=== PATIENT | male | born 1980 | race Caucasian/White ===

== ENCOUNTER → 2021-12-02 | Outpatient (CLI) | payer OTHER, SELFPAY ==
[2021-12-02 11:59] LABS: Erythrocyte Sedimentation Rate 1 mm/hr (0-20)
[2021-12-02 12:03] LABS: Absolute Lymphocyte Count 2.37 X10^3/uL (0.83-4.51); Absolute Neutrophil Count 4.5 X10^3/uL (2.0-7.7); Basophil# 0.07 X10^3/uL; Basophil% 0.8 % (0-1); Eosinophil# 0.65 X10^3/uL; Eosinophils% 7.8 % (0-5); Hematocrit 36.6 % (40-54); Lymphocyte # 2.37 X10^3/ul (0.83-4.51); Lymphocyte % 28.6 % (19-41); Mean Corp Hgb Conc 35.5 g/dL (32-36); Mean Corpuscular Hgb 30.3 pg (27.0-32.0); Mean Corpuscular Volume 85.3 fL (80-94); Mean Platelet Vol. 10.1 fl (6.2-12.0); Monocyte% 7.2 % (0-10); NRBC Flagged by Analyzer 0 % (0-5); Neutrophil % 54.3 % (47-70); Platelet Count 271 K/mm3 (150-450); RBC Distribution Width CV 12.4 % (11.6-14.6); RBC Distribution Width SD 38.2 fl (35.1-43.9); Red Blood Count 4.29 M/mm3 (4.6-6.2); White Blood Count 8.3 K/mm3 (4.4-11.0)
[2021-12-02 12:11] LABS: ALB/GLOB Ratio 1.1 RATIO (0.9-2.4); AST(SGOT) 19 U/L (15-37); Alanine Aminotransfer ALT/SGPT 30 U/L (16-61); Albumin, Serum 3.7 g/dL (3.2-5.0); Alkaline Phosphatase 51 U/L (45-117); Amylase 45 U/L (25-115); Anion Gap 8 (5-15); BUN 13 mg/dL (7-18); Calcium,Total 8.9 mg/dL (8.5-10.1); Chloride 107 mmol/L (98-107); Creatinine, Serum 0.93 mg/dL (0.70-1.30); EST Glomerular Filtration Rate 95 mL/min (>60); Est Glom Filt Rate - Afr Amer 115 mL/min (>60); Globulin 3.5 g/dL (2.2-4.2); Glucose 98 mg/dL (74-106); Lipase 110 U/L (73-393); Potassium 3.9 mmol/L (3.5-5.1); Protein, Total 7.2 g/dL (6.4-8.2); Sodium Level 142 mmol/L (136-145)
--- NOTE | 2021-12-02 13:16 | CT_ITS ---
STUDY: CT ABDOMEN AND PELVIS WITH CONTRAST REASON FOR EXAM: Male, 41 years old. ABD PAIN, DIFFUSE -- GI BLEED RADIATION DOSAGE (If Supplied By Facility): CTDIvol = ( 15.87 ) mGy, DLP = ( 1209.88 ) mGycm TECHNIQUE: Transaxial images were obtained from the dome of the diaphragm to the symphysis pubis with oral contrast. Oral and amp; IV Gastrografin and amp; 100mL Isovue-300 was administered. Sagittal and coronal images were reconstructed. Individualized dose optimization techniques were used for this CT. COMPARISON: None. FINDINGS: Minimal degree of dependent bibasilar atelectasis. The visualized portions of the heart are within normal limits. Normal liver. Normal gallbladder and extrahepatic biliary system. Normal spleen. Normal pancreas. Normal bilateral adrenal glands. Normal right kidney. Normal left kidney. Normal visualized stomach. Normal small intestine. Scattered sigmoid diverticula. The patient is status post appendectomy. Normal abdominal aorta. Normal inferior vena cava. Normal retroperitoneum. Distended urinary bladder. Small benign-appearing bilateral inguinal lymph nodes. Normal osseous structures. CT/Abdomen/Pelvis WITH Contrast IMPRESSION: Scattered sigmoid diverticula. Electronically Signed: Payam Pugh MD at 14:30 EDT ,
== END | disposition home or self-care (01) ==
PROVIDERS: PCP Internal Medicine; Referring Provider Internal Medicine; Visit Provider Internal Medicine
DX: R10.84 Generalized abdominal pain (principal)
CPT/HCPCS: 36415; 74177; 80053; 82150; 83690; 85025; 85652; Q9967

== ENCOUNTER 2022-07-24 12:00 | Observation (INO) | payer OTHER, SELFPAY ==
[2022-07-24 12:01] VITALS: BP 165/91; PULSE 73; RESP 18; TEMP 36.2; O2SAT 100; BMI 31.8
[2022-07-24 13:39] LABS: Absolute Lymphocyte Count 2.09 X10^3/uL (0.83-4.51); Absolute Neutrophil Count 3.5 X10^3/uL (2.0-7.7); Basophil# 0.04 X10^3/uL; Basophil% 0.6 % (0-1); Eosinophil# 0.29 X10^3/uL; Eosinophils% 4.5 % (0-5); Hematocrit 32.5 % (40-54); Hemoglobin 9.8 g/dL (13.0-16.5); Lymphocyte # 2.09 X10^3/ul (0.83-4.51); Lymphocyte % 32.3 % (19-41); Mean Corp Hgb Conc 30.2 g/dL (32-36); Mean Corpuscular Hgb 23.3 pg (27.0-32.0); Mean Corpuscular Volume 77.2 fL (80-94); Mean Platelet Vol. 9.6 fl (6.2-12.0); Monocyte# 0.58 X10^3/uL; NRBC Flagged by Analyzer 0 % (0-5); Neutrophil # 3.46 X10^3/uL (2.7-7.7); Neutrophil % 53.4 % (47-70); Platelet Count 396 K/mm3 (150-450); RBC Distribution Width CV 17.1 % (11.6-14.6); RBC Distribution Width SD 47.5 fl (35.1-43.9); Red Blood Count 4.21 M/mm3 (4.6-6.2); White Blood Count 6.5 K/mm3 (4.4-11.0)
--- NOTE | 2022-07-24 15:10 | CT_ITS ---
STUDY: CT ABDOMEN AND PELVIS WITH CONTRAST REASON FOR EXAM: Male, 42 years old. Chronic abdominal pain. Blood in the stools. RADIATION DOSAGE (If Supplied By Facility): CTDIvol = ( 14.24 ) mGy, DLP = ( 1146.07 ) mGycm TECHNIQUE: Transaxial images were obtained from the dome of the diaphragm to the symphysis pubis without oral contrast. IV 100mL Isovue-300 was administered. Sagittal and coronal images were reconstructed. Individualized dose optimization techniques were used for this CT. COMPARISON: Comparison is made with prior study dated December 02, 2021. FINDINGS: The visualized lung bases are unremarkable. The visualized portions of the heart are within normal limits. Normal liver. Normal gallbladder and extrahepatic biliary system. Normal spleen. Normal pancreas. Normal bilateral adrenal glands. Focal cortical defect in the midportion of the lateral aspect of the right kidney suggestive of a prior inflammatory insult. Normal left kidney. Normal visualized stomach. Normal small intestine. There are scattered colonic diverticula consistent with diverticulosis. There are surgical clips in the region of the appendix consistent with a prior appendectomy. There is scattered atherosclerotic calcification of the abdominal aorta, without a demonstrated aneurysm. Normal inferior vena cava. Normal retroperitoneum. Normal urinary bladder. Normal abdominal wall. Normal osseous structures. CT/Abdomen/Pelvis W IV Cont ONLY IMPRESSION: 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 This was not seen on prior study. Electronically Signed: Payam Pugh MD at 15:56 EST ,
[2022-07-24 15:16] LABS: Bacteria 0 SEEN /hpf (None Seen); Mucous, Urine 0 SEEN /hpf (<or=2+); Red Blood Cells-Urine 0 SEEN /hpf (0-5); Squamous Epithelial Cells - UA 0 SEEN /hpf (0-5); White Blood Cells 0 SEEN /hpf (0-5)
[2022-07-24] MEDS: 0.9% Normal Saline 1,000 ML 1000 ML IV (15:26)
[2022-07-24 15:34] LABS: Color, Urine Straw (Yellow); Glucose, Dipstick Normal (Normal); Ketone-Dipstick Negative (Negative); Leukocyte Esterase-Dipstick Negative /ul (Negative); Nitrite-Dipstick Negative (Negative); Occult Blood-Urine Negative /ul (Negative); Protein-Dipstick Negative (Negative); Urine Bilirubin Dipstick Negative (Negative); Urine Clarity Clear (Clear); Urine Urobilinogen Normal (Normal); Urine pH 6.5 (5.0 - 8.0)
--- NOTE | 2022-07-24 16:06 | EX.ED.DYSGE1 ---
HPI <EDWARD Pace - Last Filed: 07/24/22 17:35> History of Present Illness Chief Complaint: GI Bleed Narrative Narrative: Patient is a 42-year-old male with no significant medical history presents to the emergency department with ongoing abdominal pain, rectal bleeding. Patient states that he has been dealing with this for multiple years. This comes in waves, he will have multiple weeks where he has significant rectal bleeding where he gets dizzy, lightheaded. Patient in the past has had CAT scans, colonoscopies and has not had any diagnosis. Patient states that over the last 3 weeks, has been having worsening abdominal pain, blood in stool. Patient's last blood in stool was this morning. Patient has a history of anemia with a hemoglobin of 8.6 a week ago, he went to the industrial maintenance mechanic and saw a nurse practitioner who referred him to the emergency department. PFSH <EDWARD Pace - Last Filed: 07/24/22 17:35> PFSH Medical History Abdominal pain Anemia Blood in stool Diverticulitis Dizziness and giddiness GIB (gastrointestinal bleeding) Impingement syndrome of left shoulder LLQ pain Nausea Home Medications NK 07/24/22 [History Last Taken Unknown] Allergy/AdvReac Type Severity Reaction Status Date / Time No Known Allergies Allergy Verified 07/24/22 15:30 Family History Mother Skin cancer Leukemia Atrial fibrillation Surgical History Hx of appendectomy Social History (Updated 07/24/22 @ 17:[address] Arielle Rebollar DO) household members: spouse and children housing: house current occupational status: employed Smoking Status: Former smoker Tobacco: How many years used: 28 how long ago did patient quit smoking: Patient quit smoking in February 2022 alcohol intake: current alcohol intake frequency: 3 or more drinks per day substance use type: marijuana and other details: Uses medical marijuana what type of physical activity do you participate in: additional details: yardwork do you feel safe at home: Yes ROS <EDWARD Pace - Last Filed: 07/24/22 17:35> ROS ED ROS Narrative Constitutional: Negative for fever, chills, weight loss, weakness Eyes: Negative for vision loss, vision change, double vision ENT: Negative for any sore throat, ear pain, congestion Cardiovascular: Negative for any chest pain, tightness, palpitations Respiratory: Negative for any cough, sputum production, hemoptysis, dyspnea, dyspnea on exertion, orthopnea Gastrointestinal: Negative for any nausea, vomiting, diarrhea, constipation, blood in vomit. Positive blood in stool. Positive for abdominal pain : Negative for any urinary frequency, dysuria, retention, blood in urine Muscle skeletal: Negative for any muscle joint pain, stiffness, myalgias, arthralgias, neck pain, back pain Neurological: Negative for any headache, syncope, numbness or tingling, dizziness Skin: Negative for any rashes, lumps, itching, abrasions, lacerations Psychiatric: Negative for any depression, anxiety, stress, suicidal ideation, homicidal ideation Hematologic: Negative for any easy bruising, excessive bruising, easy bleeding Allergies: Negative for any eczema, hives, rash EXAM <EDWARD Pace - Last Filed: 07/24/22 17:35> Physical Exam Narrative Exam Narrative: Vital signs reviewed. HEET: Head normocephalic atraumatic, TMs clear bilaterally. Posterior pharynx is clear, moist mucous membranes. Nares clear bilaterally. Neck: Supple with no lymphadenopathy or tenderness. No signs of meningismus, negative jolt sign. Cardiac: Regular rate and rhythm no murmurs gallops or rubs, equal peripheral pulses bilaterally. Respiratory: Lungs clear to auscultation bilaterally. No chest tenderness. Abdomen: Soft, nondistended. No abdominal bruit or pulsatile masses. No hepatosplenomegaly. Patient is some tenderness to the lower abdomen Extremities: No peripheral edema, no signs of gross trauma or deformity. Active full range of motion of all extremities. Neuro: Cranial nerves II through XII intact, no focal neurological deficits. Skin: Clean dry and intact with no rash, purpura, petechiae, vesicles or pustules. Patient does have a pale like appearance Backs/flank: No CVA tenderness, no midline spinal tenderness, no deformity. Psych: Normal mood and affect. No SI, HI or acute psychosis. Rectal: Rectal exam was completed with nurse museum service scheduler. There is no active bleeding, no bright red blood. No acute or chronic hemorrhoids. Const Vital Signs: 07/24/22 12:01 Temperature 97.2 F L Temperature Source Temporal Pulse Rate 73 Respiratory Rate 18 Blood Pressure 165/91 H Blood Pressure Mean 115 Pulse Ox 100 Oxygen Delivery Method Room Air Positive well nourished and well developed General Appearance ED: well developed <Dr. Shane Antoino MD - Last Filed: 07/24/22 17:03> Physical Exam Const Vital Signs: 07/24/22 12:01 Temperature 97.2 F L Temperature Source Temporal Pulse Rate 73 Respiratory Rate 18 Blood Pressure 165/91 H Blood Pressure Mean 115 Pulse Ox 100 Oxygen Delivery Method Room Air MDM <EDWARD Pace - Last Filed: 07/24/22 17:35> MDM Lab Data Labs: Laboratory Results - last 24 hr 07/24/22 07/24/22 07/24/22 13:30 13:30 13:30 WBC 6.5 RBC 4.21 L Hgb 9.8 L Hct 32.5 L MCV 77.2 L MCH 23.3 L MCHC 30.2 L RDW Std Deviation 47.5 H RDW Coeff of Breanne 17.1 H Plt Count 396 MPV 9.6 Immature Gran % (Auto) 0.200 Neut % (Auto) 53.4 Lymph % (Auto) 32.3 [place] % (Auto) 9.0 Eos % (Auto) 4.5 Baso % (Auto) 0.6 Absolute Neuts (auto) 3.5 Absolute Lymphs (auto) 2.09 Nucleated RBC % 0 Sodium Cancelled 143 Potassium Cancelled 4.2 Chloride Cancelled 112 H Carbon Dioxide Cancelled 25.0 Anion Gap Cancelled 6 BUN Cancelled 18 Creatinine Cancelled 0.88 Estim Creat Clear Calc Cancelled 111.76 Est GFR (MDRD) Af Amer Cancelled 121 Est GFR (MDRD) Non-Af Cancelled 100 BUN/Creatinine Ratio Cancelled 20.5 H Glucose Cancelled 102 Calcium Cancelled 9.1 Total Bilirubin 0.40 AST 13 L ALT 19 Alkaline Phosphatase 62 Total Protein 7.9 Albumin 3.8 Globulin 4.1 Albumin/Globulin Ratio 0.9 Lipase 282 Urine Color Urine Clarity Urine pH Ur Specific [place] Urine Protein Urine Glucose (UA) Urine Ketones Urine Occult Blood Urine Nitrite Urine Bilirubin Urine Urobilinogen Ur Leukocyte Esterase Urine RBC Urine WBC Ur Squamous Epith Cells Urine Bacteria Urine Mucus 07/24/22 15:00 WBC RBC Hgb Hct MCV MCH MCHC RDW Std Deviation RDW Coeff of Breanne Plt Count MPV Immature Gran % (Auto) Neut % (Auto) Lymph % (Auto) [place] % (Auto) Eos % (Auto) Baso % (Auto) Absolute Neuts (auto) Absolute Lymphs (auto) Nucleated RBC % Sodium Potassium Chloride Carbon Dioxide Anion Gap BUN Creatinine Estim Creat Clear Calc Est GFR (MDRD) Af Amer Est GFR (MDRD) Non-Af BUN/Creatinine Ratio Glucose Calcium Total Bilirubin AST ALT Alkaline Phosphatase Total Protein Albumin Globulin Albumin/Globulin Ratio Lipase Urine Color Straw Urine Clarity Clear Urine pH 6.5 Ur Specific [place] 1.010 Urine Protein Negative Urine Glucose (UA) Normal Urine Ketones Negative Urine Occult Blood Negative Urine Nitrite Negative Urine Bilirubin Negative Urine Urobilinogen Normal Ur Leukocyte Esterase Negative Urine RBC 0 SEEN Urine WBC 0 SEEN Ur Squamous Epith Cells 0 SEEN Urine Bacteria 0 SEEN Urine Mucus 0 SEEN Radiography Diagnostic Testing: Clinical Impression(s) from Imaging Studies Abdomen/Pelvis CT 07/24/22 15:10 IMPRESSION: 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 This was not seen on prior study. Electronically Signed: Payam Pugh MD at 15:56 EST , Differential Diagnosis Abdominal Pain: Cholecystitis and Bowel obstruction Why less likely: Minimal pain in the right upper quadrant Why less likely: Actively having bowel movements Management Discussion w/another healthcare provider: Hospitalist and Composition [employer] Install[employer] Treatment and Re-Evaluation :: All radiologic examinations were read, reviewed by the emergency department attending. From these reads, a plan of care will be put in place. Patient appears generally well, patient appears nontoxic, vital signs are stable. Patient is slightly pale appearing. Patient did receive a full abdominal work-up. Patient presents to the [facility] with ongoing abdominal pain, gross bloody stools for the last 3 weeks. Patient was sent in by the industrial maintenance mechanic for admission. Patient did receive basic laboratory values, patient's hemoglobin is 9.8, patient did have studies done 2 weeks ago where his hemoglobin is 8.6, this is an improvement. Patient does have low MCV, low MCH. Patient's chemistries were unremarkable. Patient did receive a CT scan, this was done concerning for history of diverticular disease. To ensure that the patient does have acute diverticulitis or abscess. Patient CT of the abdomen/pelvis shows findings suggestive of focal cortical scarring in the lateral aspect of the right kidney. No other acute abnormality. At this time, there is no evidence of any diverticulitis or acute abdominal pathology. I did speak with DrManju Friend, he does agree that the patient needs admitted to the hospital. Hospitalist will admit the patient. Patient was positive for microscopic blood. <Dr. Shane Antonio MD - Last Filed: 07/24/22 17:03> MDM MDM Narrative Medical decision making narrative: Seen and evaluated independently and in conjunction with nurse practitioner. Agree with notes above unless documented otherwise. Patient with increased frequency of rectal bleeding which has been chronic, symptoms of blood loss, weak and lightheaded. Abdominal pain all the time, present now but not severe. On exam he is well-appearing no distress normal vital signs actually little hypertensive, mild tenderness in the left lower quadrant. Agree with obtaining labs, CT, discussing with GI for further recommendations and management. Lab Data Attestation: I reviewed the patient's lab results. Labs: Laboratory Results - last 24 hr 07/24/22 07/24/22 07/24/22 13:30 13:30 13:30 WBC 6.5 RBC 4.21 L Hgb 9.8 L Hct 32.5 L MCV 77.2 L MCH 23.3 L MCHC 30.2 L RDW Std Deviation 47.5 H RDW Coeff of Breanne 17.1 H Plt Count 396 MPV 9.6 Immature Gran % (Auto) 0.200 Neut % (Auto) 53.4 Lymph % (Auto) 32.3 [place] % (Auto) 9.0 Eos % (Auto) 4.5 Baso % (Auto) 0.6 Absolute Neuts (auto) 3.5 Absolute Lymphs (auto) 2.09 Nucleated RBC % 0 Sodium Cancelled 143 Potassium Cancelled 4.2 Chloride Cancelled 112 H Carbon Dioxide Cancelled 25.0 Anion Gap Cancelled 6 BUN Cancelled 18 Creatinine Cancelled 0.88 Estim Creat Clear Calc Cancelled 111.76 Est GFR (MDRD) Af Amer Cancelled 121 Est GFR (MDRD) Non-Af Cancelled 100 BUN/Creatinine Ratio Cancelled 20.5 H Glucose Cancelled 102 Calcium Cancelled 9.1 Total Bilirubin 0.40 AST 13 L ALT 19 Alkaline Phosphatase 62 Total Protein 7.9 Albumin 3.8 Globulin 4.1 Albumin/Globulin Ratio 0.9 Lipase 282 Urine Color Urine Clarity Urine pH Ur Specific [place] Urine Protein Urine Glucose (UA) Urine Ketones Urine Occult Blood Urine Nitrite Urine Bilirubin Urine Urobilinogen Ur Leukocyte Esterase Urine RBC Urine WBC Ur Squamous Epith Cells Urine Bacteria Urine Mucus 07/24/22 15:00 WBC RBC Hgb Hct MCV MCH MCHC RDW Std Deviation RDW Coeff of Breanne Plt Count MPV Immature Gran % (Auto) Neut % (Auto) Lymph % (Auto) [place] % (Auto) Eos % (Auto) Baso % (Auto) Absolute Neuts (auto) Absolute Lymphs (auto) Nucleated RBC % Sodium Potassium Chloride Carbon Dioxide Anion Gap BUN Creatinine Estim Creat Clear Calc Est GFR (MDRD) Af Amer Est GFR (MDRD) Non-Af BUN/Creatinine Ratio Glucose Calcium Total Bilirubin AST ALT Alkaline Phosphatase Total Protein Albumin Globulin Albumin/Globulin Ratio Lipase Urine Color Straw Urine Clarity Clear Urine pH 6.5 Ur Specific [place] 1.010 Urine Protein Negative Urine Glucose (UA) Normal Urine Ketones Negative Urine Occult Blood Negative Urine Nitrite Negative Urine Bilirubin Negative Urine Urobilinogen Normal Ur Leukocyte Esterase Negative Urine RBC 0 SEEN Urine WBC 0 SEEN Ur Squamous Epith Cells 0 SEEN Urine Bacteria 0 SEEN Urine Mucus 0 SEEN Radiography Diagnostic Testing: Clinical Impression(s) from Imaging Studies Abdomen/Pelvis CT 07/24/22 15:10 IMPRESSION: 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 This was not seen on prior study. Electronically Signed: Payam Pugh MD at 15:56 EST , Discharge Plan Dx/Rx/DC Orders Clinical Impression: Acute lower gastrointestinal bleeding, Iron deficiency anemia secondary to blood loss (chronic) Disposition Disposition: Acute Care [facility]
[2022-07-24 16:29] LABS: ALB/GLOB Ratio 0.9 RATIO (0.9-2.4); AST(SGOT) 13 U/L (15-37); Alanine Aminotransfer ALT/SGPT 19 U/L (16-61); Albumin, Serum 3.8 g/dL (3.2-5.0); Alkaline Phosphatase 62 U/L (45-117); Anion Gap 6 (5-15); BUN 18 mg/dL (7-18); BUN/Creat Ratio 20.5 RATIO (10-20); Calcium,Total 9.1 mg/dL (8.5-10.1); Chloride 112 mmol/L (98-107); Creatinine, Serum 0.88 mg/dL (0.70-1.30); EST Glomerular Filtration Rate 100 mL/min (>60); Est Glom Filt Rate - Afr Amer 121 mL/min (>60); Estimated Creatinine Clearance 111.76 ml/min; Globulin 4.1 g/dL (2.2-4.2); Glucose 102 mg/dL (74-106); Lipase 282 U/L (73-393); Potassium 4.2 mmol/L (3.5-5.1); Protein, Total 7.9 g/dL (6.4-8.2); Sodium Level 143 mmol/L (136-145)
--- NOTE | 2022-07-24 17:04 | HP.PCM.HOS_ITS ---
HPI - General General Date of Admission: 07/24/22 Date of Service: 07/24/22 Chief Complaint: Rectal bleeding HPI Narrative GUEVARA DAVIS, is a 42 M who presented to department at [facility] on 07/24/2022 from the GI office with rectal bleeding. Patient reports he had a long history of rectal bleeding for at least 10 years with intermittent abdominal cramping. He had a colonoscopy about 10 years ago but does not recall what they found at that time. His hemoglobin has fluctuated and been as low as in the eights. Currently is at 9.8. He states he has good periods with less rectal bleeding and there is times where he is having more significant rectal bleeding. Iron studies have been done recently which show significant iron deficiency. His was extremely low. He is also had some intermittent nausea and vomiting however he has not had this recently. He has previously been treated for diverticulitis by his primary care physician without any relief of symptoms. He has had intermittent lightheadedness and shortness of breath. He uses medical marijuana. He is not using any excessive NSAIDs. He has a history of alcohol use however he is cut back drastically and only using 2 beers a week. He quit smoking in February of this past year. Vital signs at presentation showed a temperature of 97.2, heart rate 84, blood pressure is 143/88, respiratory 18, sats are 97% on room air. CBC is consistent with a microcytic anemia having a hemoglobin of 9.8 and MCV of 77.2. White count and platelet counts are normal. His chemistry panel is unremarkable. Liver function is normal. Urine is unremarkable. CT of the abdomen pelvis was performed and showed findings consistent with a cortical scar at the lateral a spect of the right kidney that is reported consistent with prior inflammatory insult. [facility] Medical History Abdominal pain Anemia Blood in stool Diverticulitis Dizziness and giddiness GIB (gastrointestinal bleeding) Impingement syndrome of left shoulder LLQ pain Nausea Home Medications NK 07/24/22 [History Last Taken Unknown] Allergy/AdvReac Type Severity Reaction Status Date / Time No Known Allergies Allergy Verified 07/24/22 15:30 Family History Mother Skin cancer Leukemia Atrial fibrillation Surgical History Hx of appendectomy Social History (Updated 07/24/22 @ 17:[address] Arielle Rebollar DO) household members: spouse and children housing: house current occupational status: employed Smoking Status: Former smoker Tobacco: How many years used: 28 how long ago did patient quit smoking: Patient quit smoking in February 2022 alcohol intake: current alcohol intake frequency: 3 or more drinks per day substance use type: marijuana and other details: Uses medical marijuana what type of physical activity do you participate in: additional details: yardwork do you feel safe at home: Yes ROS Constitutional Constitutional: Reports fatigue; Denies anorexia, change in weight, chills, fever(s), malaise, night sweats, weakness or other Eyes Eyes: Denies blurry vision, change in eye color, change in vision, discharge from eye(s), double vision, erythema, eye pain, loss of vision or other ENT HEENT: Denies abnormal hearing, dysphagia, ear pain, epistaxis, headache(s), hearing loss, nasal congestion, nasal discharge, post nasal drip, sinus pressure, sore throat or other Cardiovascular Cardiovascular: Denies chest pain, claudication, dyspnea on exertion, edema, lightheadedness, orthopnea, palpitations, paroxysmal nocturnal dyspnea, rapid heart rate, syncope or other Respiratory/Chest Respiratory/Chest: Reports shortness of breath with exertion; Denies cough, dyspnea, excessive phlegm production, hemoptysis, productive cough, shortness of breath at rest, wheezing or other Gastrointestinal Gastrointestinal: Reports abdominal pain, constipation, diarrhea, hematochezia, loose stools and nausea; Denies coffee ground emesis, dyspepsia, hematemesis, melena, vomiting or other Genitourinary Genitourinary: Denies burning urination, difficulty urinating, dysuria, hematuria, nocturia, urinary frequency, urinary hesitancy, urinary incontinence, urinary urgency or other Musculoskeletal Musculoskeletal: Denies arthralgias, back pain, joint pain, joint stiffness, joint swelling, myalgias, neck pain or other Neurologic Neurologic: Denies abnormal gait, abnormal speech, confusion, disequilibrium, dizziness, focal weakness, headache(s), numbness, paresthesias, seizure-like activity, seizures, syncope, tingling, tremor(s) or other Psychiatric Psychiatric: Denies anxiety, depression, homicidal ideation, suicidal ideation or other Endocrine Endocrinology: Denies change in body appearance, cold intolerance, excessive sweating, heat intolerance, polydipsia, polyuria or other Hematologic/Lymphatic Hematologic/Lymphatic: Denies anemia, easy bleeding, easy bruising, lymphaden opathy or other Allergic/Immunologic Allergic/Immunologic: Denies rhinitis, hives, eczemia, asthma or other Vital Signs Vital Signs Vital Signs: 07/24/22 12:01 Temperature 97.2 F L Temperature Source Temporal Pulse Rate 73 Respiratory Rate 18 Blood Pressure 165/91 H Blood Pressure Mean 115 Pulse Ox 100 Oxygen Delivery Method Room Air Weight Weight: 100.652 kg Body Mass Index (BMI) 31.8 Physical Exam Const alert, oriented x3, no apparent distress, healthy appearing and well nourished Constitutional Narrative: Very pleasant, middle-aged, white male, sitting up in bed, mother bedside, appears comfortable nontoxic HEENT normocephalic, head/scalp atraumatic, hearing grossly normal bilaterally and moist oral mucous membranes HEENT Narrative: Dentition is good, Mallampati is 2, no thrush Eyes PERRL and EOMs intact bilaterally; Negative for conjunctivae normal Eyes Narrative: Conjunctiva are pale bilaterally, no scleral icterus Neck no lymphadenopathy, supple, no JVD and no carotid bruits Neck Narrative: Trachea midline, no thyroid enlargement Resp normal respiratory effort, no retractions, no use of accessory muscles and clear to auscultation bilaterally Auscultation: Negative for rales, rhonchi or wheezes Cardio regular rate, regular rhythm, S1 normal heart sound, S2 normal heart sound, no murmurs, no rub, no gallops and no clicks GI normal to inspection, nondistended, normoactive bowel sounds and soft to palpation GI Narrative: Mild diffuse tenderness Extremity no clubbing, cyanosis or edema Extremity Narrative: 2+ pedal pulses Skin no rashes or lesions noted, no wounds, skin turgor normal, no jaundice, no petechiae and no mottling Skin Narrative: Skin is pale Neuro oriented x3, CN's II-XII intact bilaterally, moves all extremities and no focal motor deficits Speech: speech normal Psych affect normal Psych Narrative: Very pleasant, appropriately interactive Results Lab / Micro Data Result Diagrams: 07/24/22 13:30 07/24/22 13:30 Labs: Laboratory Results - last 24 hr 07/24/22 13:30: WBC 6.5, RBC 4.21 L, Hgb 9.8 L, Hct 32.5 L, MCV 77.2 L, MCH 23.3 L, MCHC 30.2 L, RDW Std Deviation 47.5 H, RDW Coeff of [place] 17.1 H, Plt Count 396, MPV 9.6, Immature Gran % (Auto) 0.200, Neut % (Auto) 53.4, Lymph % (Auto) 32.3, [place] % (Auto) 9.0, Eos % (Auto) 4.5, Baso % (Auto) 0.6, Absolute Neuts (auto) 3.5, Absolute Lymphs (auto) 2.09, Nucleated RBC % 0 07/24/22 13:30: Sodium Cancelled, Potassium Cancelled, Chloride Cancelled, Carbon Dioxide Cancelled, Anion Gap Cancelled, BUN Cancelled, Creatinine Cancelled, Estim Creat Clear Calc Cancelled, Est GFR (MDRD) Af Amer Cancelled, Est GFR (MDRD) Non-Af Cancelled, BUN/Creatinine Ratio Cancelled, Glucose Cancelled, Calcium Cancelled 07/24/22 13:30: Sodium 143, Potassium 4.2, Chloride 112 H, Carbon Dioxide 25.0, Anion Gap 6, BUN 18, Creatinine 0.88, Estim Creat Clear Calc 111.76, Est GFR (MDRD) Af Amer 121, Est GFR (MDRD) Non-Af 100, BUN/Creatinine Ratio 20.5 H, Glucose 102, Calcium 9.1, Total Bilirubin 0.40, AST 13 L, ALT 19, Alkaline Phosphatase 62, Total Protein 7.9, Albumin 3.8, Globulin 4.1, Albumin/Globulin Ratio 0.9, Lipase 282 07/24/22 15:00: Urine Color Straw, Urine Clarity Clear, Urine pH 6.5, Ur Specific [place] 1.010, Urine Protein Negative, Urine Glucose (UA) Normal, Urine Ketones Negative, Urine Occult Blood Negative, Urine Nitrite Negative, Urine Bilirubin Negative, Urine Urobilinogen Normal, Ur Leukocyte Esterase Negative, Urine RBC 0 SEEN, Urine WBC 0 SEEN, Ur Squamous Epith Cells 0 SEEN, Urine Bacteria 0 SEEN, Urine Mucus 0 SEEN Micro: Microbiology 07/24/22 15:30 Stool Stool Occult Blood (NATASHA) - Final Occult Blood Positive Radiology Impression Abdomen/Pelvis CT 07/24/22 15:10 IMPRESSION: 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 This was not seen on prior study. Electronically Signed: Payam Pugh MD at 15:56 EST , Assessment & Plan Assessment/Plan (1) Acute lower gastrointestinal bleeding: (2) Abdominal pain: (3) Iron deficiency anemia secondary to blood loss (chronic): PLAN: Plan Lower GI bleeding -Patient with rectal hemorrhaging periodically for some time now -Iron studies are consistent with iron deficiency anemia -Per discussion with Dr. Moreno plan is for EGD and colonoscopy tomorrow -Clear liquid diet tonight -IV fluids with LR at 75 cc/h at midnight -N.p.o. after midnight -Prep orders per Dr. Moreno Iron deficiency anemia -Due to chronic blood loss -Hemoglobin is 9.8 which is relatively stable compared to his previous -Anemia is microcytic and recent iron studies are consistent with iron deficiency -IV iron 200 mg x 2 doses starting today -Start oral iron tomorrow and dose with vitamin C -We will need discharged with oral iron and vitamin C supplementation to enhance absorption Elevated blood pressure -No history of hypertension -We will use as needed's with hydralazine for systolic blood pressure greater than 160 Abdominal pain -CT of the abdomen only shows focal cortical scar on the lateral aspect of the right kidney with no other acute abnormalities noted -EGD colonoscopy tomorrow DVT prophylaxis -SCDs -Chemoprophylaxis contraindicated with rectal bleeding CODE STATUS -Full code Charges/Coding Visit Charges Inpatient E&M: 50357 Init Hosp L2
[2022-07-24 18:00] VITALS: BP 155/89; PULSE 70; RESP 16; TEMP 36.2; O2SAT 100
--- NOTE | 2022-07-24 18:02 | CON.PCM.GI_ITS ---
HPI Consult Data Date of Consult: 07/24/22 HPI Narrative Reason for Consultation: GI bleed HPI Narrative: GUEVARA DAVIS, is a 42 M who presented to the office today to establish with GI for rectal bleeding, started a few years ago, has been worse than ever for the past 3 wks. Accompanied by his mom. Has daily abdominal pain. Loose stools a couple times a week.? Has rectal bleeding even w/o passing stool. He has been treated for diverticulitis by primary care w/o relief of symptoms. On 07/08/22 his hgb was 8.4, iron 20, ferr 9, BUN 24. Increased rectal bleeding and rectal pain since then. He is dizzy and SOB. He also has chronic nausea and vomiting. He does use marijuana medical marijuana. He noted he drinks about 3 alcoholic drinks a day and does smoke cigarettes on a daily basis. He does not take any medicines on a daily basis. Patient states that he has been dealing with this for multiple years.? This comes in waves, he will have multiple weeks where he has significant rectal bleeding where he gets dizzy, lightheaded.? Patient in the past has had CAT scans, colonoscopies and has not had any diagnosis.? Patient states that over the last 3 weeks, has been having worsening abdominal pain, blood in stool.? Patient's last blood in stool was this morning.? 07/24/22 13:30: WBC 6.5, RBC 4.21 L, Hgb 9.8 L, Hct 32.5 L, MCV 77.2 L, MCH 23.3 L, MCHC 30.2 L, RDW Std Deviation 47.5 H, RDW Coeff of [place] 17.1 H, Plt Count 396, MPV 9.6, Immature Gran % (Auto) 0.200, Neut % (Auto) 53.4, Lymph % (Auto) 32.3, [place] % (Auto) 9.0, Eos % (Auto) 4.5, Baso % (Auto) 0.6, Absolute Neuts (auto) 3.5, Absolute Lymphs (auto) 2.09, Nucleated RBC % 0 PFSH Medical History Abdominal pain Anemia Blood in stool Diverticulitis Dizziness and giddiness GIB (gastrointestinal bleeding) Impingement syndrome of left shoulder LLQ pain Nausea Home Medications NK 07/24/22 [History Last Taken Unknown] Allergy/AdvReac Type Severity Reaction Status Date / Time No Known Allergies Allergy Verified 07/24/22 15:30 Family History Mother Skin cancer Leukemia Atrial fibrillation Surgical History Hx of appendectomy Social History (Updated 07/24/22 @ 17:[address] Arielle Rebollar DO) household members: spouse and children housing: house current occupational status: employed Smoking Status: Former smoker Tobacco: How many years used: 28 how long ago did patient quit smoking: Patient quit smoking in February 2022 alcohol intake: current alcohol intake frequency: 3 or more drinks per day substance use type: marijuana and other details: Uses medical marijuana what type of physical activity do you participate in: additional details: yardwork do you feel safe at home: Yes ROS Constitutional Constitutional: Reports fatigue; Denies anorexia, change in weight, chills, fever(s), malaise, night sweats, weakness or other Eyes Eyes: Denies blurry vision, change in eye color, change in vision, discharge fr om eye(s), double vision, erythema, eye pain, loss of vision or other ENT HEENT: Denies abnormal hearing, dysphagia, ear pain, epistaxis, headache(s), hearing loss, nasal congestion, nasal discharge, post nasal drip, sinus pressure, sore throat or other Cardiovascular Cardiovascular: Denies chest pain, claudication, dyspnea on exertion, edema, lightheadedness, orthopnea, palpitations, paroxysmal nocturnal dyspnea, rapid heart rate, syncope or other Respiratory/Chest Respiratory/Chest: Reports shortness of breath with exertion; Denies cough, dyspnea, excessive phlegm production, hemoptysis, productive cough, shortness of breath at rest, wheezing or other Gastrointestinal Gastrointestinal: Reports abdominal pain, constipation, diarrhea, hematochezia, loose stools and nausea; Denies coffee ground emesis, dyspepsia, hematemesis, melena, vomiting or other Genitourinary Genitourinary: Denies burning urination, difficulty urinating, dysuria, hematu masoud, nocturia, urinary frequency, urinary hesitancy, urinary incontinence, urinary urgency or other Musculoskeletal Musculoskeletal: Denies arthralgias, back pain, joint pain, joint stiffness, joint swelling, myalgias, neck pain or other Neurologic Neurologic: Denies abnormal gait, abnormal speech, confusion, disequilibrium, dizziness, focal weakness, headache(s), numbness, paresthesias, seizure-like activity, seizures, syncope, tingling, tremor(s) or other Psychiatric Psychiatric: Denies anxiety, depression, homicidal ideation, suicidal ideation or other Endocrine Endocrinology: Denies change in body appearance, cold intolerance, excessive sweating, heat intolerance, polydipsia, polyuria or other Hematologic/Lymphatic Hematologic/Lymphatic: Denies anemia, easy bleeding, easy bruising, lymphadenopathy or other Allergic/Immunologic Allergic/Immunologic: Denies rhinitis, hives, eczemia, asthma or other Physical Exam Const alert, oriented x3, no apparent distress, healthy appearing and well nourished HEENT normocephalic, head/scalp atraumatic, hearing grossly normal bilaterally and moist oral mucous membranes HEENT Narrative: Dentition is good, Mallampati is 2, no thrush Eyes PERRL and EOMs intact bilaterally; Negative for conjunctivae normal Eyes Narrative: Conjunctiva are pale bilaterally, no scleral icterus Neck no lymphadenopathy, supple, no JVD and no carotid bruits Neck Narrative: Trachea midline, no thyroid enlargement Resp normal respiratory effort, no retractions, no use of accessory muscles and clear to auscultation bilaterally Auscultation: Negative for rales, rhonchi or wheezes Cardio regular rate, regular rhythm, S1 normal heart sound, S2 normal heart sound, no murmurs, no rub, no gallops and no clicks GI normal to inspection, nondistended, normoactive bowel sounds and soft to palpation GI Narrative: Mild diffuse tenderness Extremity no clubbing, cyanosis or edema Extremity Narrative: 2+ pedal pulses Skin no rashes or lesions noted, no wounds, skin turgor normal, no jaundice, no petechiae and no mottling Skin Narrative: Skin is pale Neuro oriented x3, CN's II-XII intact bilaterally, moves all extremities and no focal motor deficits Speech: speech normal Psych affect normal Psych Narrative: Very pleasant, appropriately interactive Lab / Micro Data Result Diagrams: 07/24/22 13:30 07/24/22 13:30 Labs: Laboratory Results - last 24 hr 07/24/22 13:30: Sodium Cancelled, Potassium Cancelled, Chloride Cancelled, Carbon Dioxide Cancelled, Anion Gap Cancelled, BUN Cancelled, Creatinine Cancelled, Estim Creat Clear Calc Cancelled, Est GFR (MDRD) Af Amer Cancelled, Est GFR (MDRD) Non-Af Cancelled, BUN/Creatinine Ratio Cancelled, Glucose Cancelled, Calcium Cancelled 07/24/22 13:30: Sodium 143, Potassium 4.2, Chloride 112 H, Carbon Dioxide 25.0, Anion Gap 6, BUN 18, Creatinine 0.88, Estim Creat Clear Calc 111.76, Est GFR (MDRD) Af Amer 121, Est GFR (MDRD) Non-Af 100, BUN/Creatinine Ratio 20.5 H, Glucose 102, Calcium 9.1, Total Bilirubin 0.40, AST 13 L, ALT 19, Alkaline Phosphatase 62, Total Protein 7.9, Albumin 3.8, Globulin 4.1, Albumin/Globulin Ratio 0.9, Lipase 282 07/24/22 15:00: Urine Color Straw, Urine Clarity Clear, Urine pH 6.5, Ur Specific [place] 1.010, Urine Protein Negative, Urine Glucose (UA) Normal, Urine Ketones Negative, Urine Occult Blood Negative, Urine Nitrite Negative, Urine Bilirubin Negative, Urine Urobilinogen Normal, Ur Leukocyte Esterase Negative, Urine RBC 0 SEEN, Urine WBC 0 SEEN, Ur Squamous Epith Cells 0 SEEN, Urine Bacteria 0 SEEN, Urine Mucus 0 SEEN Micro: Microbiology 07/24/22 15:30 Stool Stool Occult Blood (NATASHA) - Final Occult Blood Positive Radiology Impression Abdomen/Pelvis CT 07/24/22 15:10 IMPRESSION: 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 This was not seen on prior study. Electronically Signed: Payam Pugh MD at 15:56 EST , Assessment & Plan Assessment/Plan (1) Acute lower gastrointestinal bleeding: PLAN: Acute lower GI bleeding in the setting of iron deficiency anemia. Differential diagnosis does include ulcerative colitis, less likely Crohn's colitis. Also in the differential diagnosis does include angiodysplastic lesions, anal fissure, hemorrhoidal disease, stercoral ulcer, diverticular bleed. He should also be checked for celiac disease as he is iron deficient. He should have an upper endoscopy for evaluation of his upper GI tract into the small bowel to see if this is an upper GI bleed with rapid transit. He will undergo a colonoscopy for evaluation of his lower GI tract. He was explained alternatives, risk, benefits include not withstanding bleeding, infection, sepsis, perforation, need for emergent urgent . He will have an ASA of 1. (2) Abdominal pain: PLAN: Differential diagnosis for his abdominal pain associated nausea vomiting does include marijuana hyperemesis, cyclic vomiting syndrome, gastritis, atypical gastroesophageal reflux disease. Hopefully will be able to find out more during upper endoscopy tomorrow. Charges/Coding Visit Charges Inpatient E&M: 56572 Init Hosp L3
[2022-07-24 18:04] VITALS: BMI 31.9
[2022-07-24 18:08] VITALS: BP 152/88; PULSE 70; RESP 16; TEMP 36.1; O2SAT 100
[2022-07-24] MEDS: Bisacodyl 5 MG Tablet 20 MG PO (18:42)
[2022-07-24] MEDS: Sodium Ferric Gluconat 250 MG in 0.9% Normal Saline 250 ML 135 MG IV (19:13)
[2022-07-24 20:22] VITALS: BP 144/81; PULSE 71; RESP 18; TEMP 36.4; O2SAT 99
[2022-07-24] MEDS: Polyethylene Glycol 3350 BOWEL PREP PO (20:29)
[2022-07-24] MEDS: Lactated Ringers 1,000 ML 75 ML IV (22:01)
[2022-07-25] VITALS (8 sets, daily range): BP systolic 107–132; BP diastolic 67–89; PULSE 54–76; RESP 18; TEMP 36.3–36.9; O2SAT 95–100; BMI 31.9
--- NOTE | 2022-07-25 | GASB_PTH ---
PATIENT: GUEVARA DAVIS LOC: MS3 U#:[id number] AGE/SX: 42/M ROOM: [facility] RE07/24/[address]: Dr. Galina Ya MD : 1980 BED: 1 DIS: 07/25/2022 SPEC #: [id number] RECD: 07/25/22 13:00 STATUS: ROLANDO REQ #: [id number] MELISSA: 07/25/22 00:[address]: Shyam Moreno DEPT: SURGICAL PATHOLOGY RECD BY: Bladimir Koroma ENTERED: 07/28/22 08:45 SP TYPE: Gastric Bx OTHR DR: DO Dr. Arielle Álvarez, DO Dr. Galina Ya MD Tissues: Gastric mucous membrane Procedures: Surgery Specimen Level IV Comments: @ Ordering doctor for SUIV edited from to @ by RGOOD at 07/28/22922 @ Submitting doctor edited from to @ by RGOOD at 07/28/22922 HEADER OPERATION: [place] [place] and electrohemostasis PRE-OP DIAGNOSIS: Acute lower GI bleeding TISSUE SUBMITTED: Gastric ulcer biopsy MICROSCOPIC DIAGNOSIS Gastric ulcer, biopsy: Mucosal ulcer with associated acute and chronic inflammation. See comment. AM:shiraz 07/29/2022 COMMENT The results of immunohistochemistry for Helicobacter pylori will be reported separately ([id number]). MICROSCOPIC DESCRIPTION Slides are reviewed. GROSS DESCRIPTION Received in fixative is one container labeled with the patient's name and designated gastric ulcer biopsy. The specimen consists of one irregular fragment of light wallace soft tissue that measures 0.5 x 0.4 x 0.1 cm. The specimen is totally submitted in one cassette. / SJ:shiraz 07/28/2022 TC:2 CPT: 51905
[2022-07-25 05:58] LABS: Absolute Lymphocyte Count 1.73 X10^3/uL (0.83-4.51); Absolute Neutrophil Count 3.9 X10^3/uL (2.0-7.7); Basophil# 0.04 X10^3/uL; Basophil% 0.6 % (0-1); Eosinophil# 0.22 X10^3/uL; Eosinophils% 3.4 % (0-5); Hematocrit 29.2 % (40-54); Lymphocyte # 1.73 X10^3/ul (0.83-4.51); Lymphocyte % 26.7 % (19-41); Mean Corp Hgb Conc 30.8 g/dL (32-36); Mean Corpuscular Hgb 23.6 pg (27.0-32.0); Mean Corpuscular Volume 76.4 fL (80-94); Mean Platelet Vol. 10.1 fl (6.2-12.0); Monocyte# 0.54 X10^3/uL; Monocyte% 8.3 % (0-10); NRBC Flagged by Analyzer 0 % (0-5); Neutrophil # 3.93 X10^3/uL (2.7-7.7); Neutrophil % 60.8 % (47-70); Platelet Count 352 K/mm3 (150-450); RBC Distribution Width CV 17.2 % (11.6-14.6); Red Blood Count 3.82 M/mm3 (4.6-6.2); White Blood Count 6.5 K/mm3 (4.4-11.0)
--- NOTE | 2022-07-25 06:00 | EKG12_ITS ---
Test Reason : PRE OP Blood Pressure : / mmHG Vent. Rate : 059 BPM Atrial Rate : 059 BPM P-R Int : 182 ms QRS Dur : 096 ms QT Int : 438 ms P-R-T Axes : 049 030 011 degrees QTc Int : 433 ms Sinus bradycardia Otherwise normal ECG No previous ECGs available Confirmed by TRES ABREU, NOREEN ([id number]), commissioning editor CLAU CASAS ([id number]) on 07/29/2022 8:04:12 AM Referred By: GI Confirmed By:NOREEN JOSHUA MD
[2022-07-25 06:08] LABS: International Normalized Ratio 1.3; Prothrombin Time (Protime)PT. 15.8 SECONDS (11.7-14.9)
[2022-07-25 06:09] LABS: Partial Thromboplast Time 35.9 Seconds (24.1-36.2)
[2022-07-25 06:33] LABS: Anion Gap 6 (5-15); BUN 12 mg/dL (7-18); BUN/Creat Ratio 13.2 RATIO (10-20); Calcium,Total 8.5 mg/dL (8.5-10.1); Chloride 113 mmol/L (98-107); Creatinine, Serum 0.91 mg/dL (0.70-1.30); EST Glomerular Filtration Rate 97 mL/min (>60); Est Glom Filt Rate - Afr Amer 117 mL/min (>60); Estimated Creatinine Clearance 108.07 ml/min; Glucose 99 mg/dL (74-106); Magnesium 2.1 mg/dL (1.6-2.6); Phosphorus 3.7 mg/dL (2.5-4.9); Sodium Level 143 mmol/L (136-145)
--- NOTE | 2022-07-25 07:03 | PCM.PN.HOSP ---
Reason for Visit Reason for Visit: Diagnoses Iron deficiency anemia secondary to blood loss (chronic) (07/24/22) Gastrointestinal hemorrhage, unspecified (07/24/22) Unspecified abdominal pain (07/24/22) Objective Data Objective Data Vital Signs: Vital Signs Temp Pulse Resp BP Pulse Ox O2 Del Method 97.4 F L 54 L 18 132/73 H 97 Room Air 07/25/22 02:22 07/25/22 02:22 07/25/22 02:22 07/25/22 02:22 07/25/22 02:22 07/25/22 02:22 Oxygen Delivery Method Room Air Weight: 100.924 kg Body Mass Index (BMI) 31.9 Intake & Output: Intake and Output for Last 24 Hours 07/23/22 07/24/22 07/25/22 23:59 23:59 23:59 Intake Total 1270 / 1270 1010 / 1010 Balance 1270 / 1270 1010 / 1010 Lab / Micro Data Result Diagrams: 07/25/22 05:30 07/25/22 05:30 Labs: Laboratory Results - last 24 hr 07/24/22 13:30: WBC 6.5, RBC 4.21 L, Hgb 9.8 L, Hct 32.5 L, MCV 77.2 L, MCH 23.3 L, MCHC 30.2 L, RDW Std Deviation 47.5 H, RDW Coeff of Breanne 17.1 H, Plt Count 396, MPV 9.6, Immature Gran % (Auto) 0.200, Neut % (Auto) 53.4, Lymph % (Auto) 32.3, [place] % (Auto) 9.0, Eos % (Auto) 4.5, Baso % (Auto) 0.6, Absolute Neuts (auto) 3.5, Absolute Lymphs (auto) 2.09, Nucleated RBC % 0 07/24/22 13:30: Sodium Cancelled, Potassium Cancelled, Chloride Cancelled, Carbon Dioxide Cancelled, Anion Gap Cancelled, BUN Cancelled, Creatinine Cancelled, Estim Creat Clear Calc Cancelled, Est GFR (MDRD) Af Amer Cancelled, Est GFR (MDRD) Non-Af Cancelled, BUN/Creatinine Ratio Cancelled, Glucose Cancelled, Calcium Cancelled 07/24/22 13:30: Sodium 143, Potassium 4.2, Chloride 112 H, Carbon Dioxide 25.0, Anion Gap 6, BUN 18, Creatinine 0.88, Estim Creat Clear Calc 111.76, Est GFR (MDRD) Af Amer 121, Est GFR (MDRD) Non-Af 100, BUN/Creatinine Ratio 20.5 H, Glucose 102, Calcium 9.1, Total Bilirubin 0.40, AST 13 L, ALT 19, Alkaline Phosphatase 62, Total Protein 7.9, Albumin 3.8, Globulin 4.1, Albumin/Globulin Ratio 0.9, Lipase 282 07/24/22 15:00: Urine Color Straw, Urine Clarity Clear, Urine pH 6.5, Ur Specific [place] 1.010, Urine Protein Negative, Urine Glucose (UA) Normal, Urine Ketones Negative, Urine Occult Blood Negative, Urine Nitrite Negative, Urine Bilirubin Negative, Urine Urobilinogen Normal, Ur Leukocyte Esterase Negative, Urine RBC 0 SEEN, Urine WBC 0 SEEN, Ur Squamous Epith Cells 0 SEEN, Urine Bacteria 0 SEEN, Urine Mucus 0 SEEN 07/25/22 05:30: WBC 6.5, RBC 3.82 L, Hgb 9.0 L, Hct 29.2 L, MCV 76.4 L, MCH 23.6 L, MCHC 30.8 L, RDW Std Deviation 48.0 H, RDW Coeff of Breanne 17.2 H, Plt Count 352, MPV 10.1, Immature Gran % (Auto) 0.200, Neut % (Auto) 60.8, Lymph % (Auto) 26.7, [place] % (Auto) 8.3, Eos % (Auto) 3.4, Baso % (Auto) 0.6, Absolute Neuts (auto) 3.9, Absolute Lymphs (auto) 1.73, Nucleated RBC % 0 07/25/22 05:30: Sodium 143, Potassium 4.0, Chloride 113 H, Carbon Dioxide 24.0, Anion Gap 6, BUN 12, Creatinine 0.91, Estim Creat Clear Calc 108.07, Est GFR (MDRD) Af Amer 117, Est GFR (MDRD) Non-Af 97, BUN/Creatinine Ratio 13.2, Glucose 99, Calcium 8.5, Phosphorus 3.7, Magnesium 2.1 07/25/22 05:30: PT 15.8 H, INR 1.3, APTT 35.9 Micro: Microbiology 07/24/22 15:30 Stool Stool Occult Blood (NATASHA) - Final Occult Blood Positive Radiography Diagnostic Testing: Radiology Impression Abdomen/Pelvis CT 07/24/22 15:10 IMPRESSION: 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 This was not seen on prior study. Electronically Signed: Payam Pugh MD at 15:56 EST ,
[2022-07-25] MEDS: Lactated Ringers 1,000 ML 75 ML IV (10:07)
[2022-07-25] MEDS: Lactated Ringers 1,000 ML 15 ML IV (10:42)
--- NOTE | 2022-07-25 11:45 | IMM_PTH ---
PATIENT: GUEVARA DAVIS LOC: MS3 U#:[id number] AGE/SX: 42/M ROOM: [facility] [place] RE07/24/[address]: Dr. Galina Ya MD : 1980 BED: 1 DIS: 07/25/2022 SPEC #: [id number] RECD: 07/28/22 09:16 STATUS: ROLANDO REQ #: [id number] MELISSA: 07/25/22 11:[address]: Shyam Moreno DEPT: IMMUNOHISTOCHEMISTRY RECD BY: Sarahi Locke ENTERED: 07/28/22 09:17 SP TYPE: IMMUNO OTHR DR: DO Dr. Arielle Álvarez DO Dr. Paige Pierce, MD Tissues: Stomach, NOS Procedures: H Pylori (initial) PHYSICIAN & INSTITUTION [place] [id number] SPECIMEN INFORMATION: Tissue Source: Gastric ulcer biopsy Clinical Info: Acute lower GI bleeding Specimen Number: [id number] CPT code: 37870 METHODOLOGY: Deparaffinized sections of prefer/formalin-fixed tissue or PAP/DQ stained slides are incubated with monoclonal/polyclonal antibodies/oligonucleotide probes. Localization is made via biotin free immunoperoxidase method. Appropriate controls are performed and reacted as expected. Results on target cell population are indicated in the following table: RESULTS: ANTIBODY / CLONE RESULT H Pylori (polyclonal) negative These tests were developed and their performance characteristics determined by [facility]. They may not have been cleared or approved by the U.S. Food and Drug Administration. The FDA has determined that such clearance or approval is not necessary. The above immunohistochemical/dualISH markers are ordered and reviewed by the Pathologist. INTERPRETATION: Gastric ulcer, biopsy: Negative for Helicobacter pylori organisms. AM:shiraz 07/29/2022
--- NOTE | 2022-07-25 12:25 | OP.EGD_ITS ---
Patient Name: Leonidas Lala Procedure Date: 07/25/2022 11:54 AM Date of : 1980 Age: 42 Procedure: Upper GI endoscopy Indications: Iron deficiency anemia, Hematochezia Providers: Shyam Moreno DO Medicines: Monitored Anesthesia Care Patient Profile: This is a 42 year old male. Refer to note in patient chart for documentation of history and physical. Patient has symptoms of chronic epigastric abdominal pain. Complications: No immediate complications. Procedure: Pre-Anesthesia Assessment: - Prior to the procedure, a History and Physical was performed, and patient medications and allergies were reviewed. The patient is competent. The risks and benefits of the procedure and the sedation options and risks were discussed with the patient. All questions were answered and informed consent was obtained. Patient identification and proposed procedure were verified by the physician in the pre-procedure area. Mental Status Examination: alert and oriented. Airway Examination: normal oropharyngeal airway and neck mobility. Respiratory Examination: clear to auscultation. CV Examination: normal. Prophylactic Antibiotics: The patient does not require prophylactic antibiotics. Prior Anticoagulants: The patient has taken no previous anticoagulant or antiplatelet agents. ASA Grade Assessment: II - A patient with mild systemic disease. After reviewing the risks and benefits, the patient was deemed in satisfactory condition to undergo the procedure. The anesthesia plan was to use monitored anesthesia care (MAC). Immediately prior to administration of medications, the patient was re-assessed for adequacy to receive sedatives. The heart rate, respiratory rate, oxygen saturations, blood pressure, adequacy of pulmonary ventilation, and response to care were monitored throughout the procedure. The physical status of the patient was re-assessed after the procedure. After obtaining informed consent, the endoscope was passed under direct vision. Throughout the procedure, the patient's blood pressure, pulse, and oxygen saturations were monitored continuously. The Colonoscope was introduced through the mouth, and advanced to the second part of duodenum. The upper GI endoscopy was accomplished without difficulty. The patient tolerated the procedure well. Scope In: 11:57:25 AM Scope Out: 12:08:49 PM Total Procedure Duration Time 0 hours 11 minutes 24 seconds Findings: The examined esophagus was normal. Two non-bleeding cratered gastric ulcers with no stigmata of bleeding were found in the cardia. The largest lesion was 6 mm in largest dimension. Biopsies were taken with a cold forceps for histology. Verification of patient identification for the specimen was done. Estimated blood loss was minimal. One oozing cratered gastric ulcer with a visible vessel was found on the lesser curvature of the stomach. The lesion was 6 mm in largest dimension. Area was successfully injected with 5 mL of a 1:10,000 solution of epinephrine for drug delivery. Coagulation for hemostasis using heater probe was successful. Estimated blood loss was minimal. The second portion of the duodenum was normal. Impression: - Normal esophagus. - Non-bleeding gastric ulcers with no stigmata of bleeding. Biopsied. - Oozing gastric ulcer with a visible vessel. Injected. Treated with a heater probe. - Normal second portion of the duodenum. Recommendation: - Return patient to hospital [facility] for ongoing care. - Use Protonix (pantoprazole) 40 mg PO BID for 8 weeks. - Continue present medications. Procedure Code(s): --- Professional --- 63928, 59, Esophagogastroduodenoscopy, flexible, transoral; with control of bleeding, any method 23914, 59, Esophagogastroduodenoscopy, flexible, transoral; with directed submucosal injection(s), any substance 83319, Esophagogastroduodenoscopy, flexible, transoral; with biopsy, single or multiple CPT copyright 2017 [employer]. All rights reserved. The codes documented in this report are preliminary and upon certified hyperbaric technician review may be revised to meet current compliance requirements. Shyam Moreno DO 07/25/2022 12:25:26 PM This report has been signed electronically. Number of Addenda: 0 Note Initiated On: 07/25/2022 11:54 AM
--- NOTE | 2022-07-25 12:27 | OP.CCLET_ITS ---
07/25/2022 Tammy Jordan [address] [place] [address] Re : Upper GI endoscopy procedure for Leonidas Lala Dear Dr. Jordan This procedure was performed on Monday, July 25, 2022. My impressions and recommendations are as follows: Impressions : - Normal esophagus. - Non-bleeding gastric ulcers with no stigmata of bleeding. Biopsied. - Oozing gastric ulcer with a visible vessel. Injected. Treated with a heater probe. - Normal second portion of the duodenum. Recommendations : - Return patient to hospital [facility] for ongoing care. - Use Protonix (pantoprazole) 40 mg PO BID for 8 weeks. - Continue present medications. My findings are described in the full procedure note, which is enclosed. If I can be of further assistance, please feel free to contact me at . Sincerely, Shyam Moreno, 07/25/2022 12:25:26 PM This report has been signed electronically.
--- NOTE | 2022-07-25 12:33 | OP.COLON_ITS ---
Patient Name: Leonidas Lala Procedure Date: 07/25/2022 12:09 PM Date of : 1980 Age: 42 Procedure: Colonoscopy Indications: Hematochezia Providers: Shyam Moreno DO Medicines: Monitored Anesthesia Care Patient Profile: This is a 42 year old male. Refer to note in patient chart for documentation of history and physical. Patient has symptoms of chronic epigastric abdominal pain. Last Colonoscopy: date unknown. Unable to locate last colonoscopy report. Complications: No immediate complications. Procedure: Pre-Anesthesia Assessment: - Prior to the procedure, a History and Physical was performed, and patient medications and allergies were reviewed. The patient is competent. The risks and benefits of the procedure and the sedation options and risks were discussed with the patient. All questions were answered and informed consent was obtained. Patient identification and proposed procedure were verified by the physician in the pre-procedure area. Mental Status Examination: alert and oriented. Airway Examination: normal oropharyngeal airway and neck mobility. Respiratory Examination: clear to auscultation. CV Examination: normal. Prophylactic Antibiotics: The patient does not require prophylactic antibiotics. Prior Anticoagulants: The patient has taken no previous anticoagulant or antiplatelet agents. ASA Grade Assessment: II - A patient with mild systemic disease. After reviewing the risks and benefits, the patient was deemed in satisfactory condition to undergo the procedure. The anesthesia plan was to use monitored anesthesia care (MAC). Immediately prior to administration of medications, the patient was re-assessed for adequacy to receive sedatives. The heart rate, respiratory rate, oxygen saturations, blood pressure, adequacy of pulmonary ventilation, and response to care were monitored throughout the procedure. The physical status of the patient was re-assessed after the procedure. After I obtained informed consent, the scope was passed under direct vision. Throughout the procedure, the patient's blood pressure, pulse, and oxygen saturations were monitored continuously. The Colonoscope was introduced through the anus and advanced to 10 cm into the ileum. The colonoscopy was performed without difficulty. The patient tolerated the procedure well. The quality of the bowel preparation was good. Scope In: 12:10:48 PM Scope Withdrawal Time 0 hours 5 minutes 21 seconds Scope Out: 12:19:16 PM Total Procedure Duration Time 0 hours 8 minutes 28 seconds Findings: Multiple small-mouthed diverticula were found in the recto-sigmoid colon and sigmoid colon. Non-bleeding internal hemorrhoids were found during retroflexion. The hemorrhoids were Grade I (internal hemorrhoids that do not prolapse). The entire examined colon appeared normal on direct and retroflexion views. The terminal ileum appeared normal. Impression: - Diverticulosis in the recto-sigmoid colon and in the sigmoid colon. - Non-bleeding internal hemorrhoids. - The entire examined colon is normal on direct and retroflexion views. - The examined portion of the ileum was normal. - No specimens collected. Recommendation: - Discharge patient to home. - Resume previous diet. - Continue present medications. -High fiber diet and hydrocortisone suppositories 25 or 30 mg per rectum twice daily x2 weeks - No recommendation at this time regarding repeat colonoscopy due to age. Procedure Code(s): --- Professional --- 14661, Colonoscopy, flexible; diagnostic, including collection of specimen(s) by brushing or washing, when performed (separate procedure) CPT copyright 2017 [employer]. All rights reserved. The codes documented in this report are preliminary and upon hcc coders review may be revised to meet current compliance requirements. Shyam Moreno DO 07/25/2022 12:33:16 PM This report has been signed electronically. Number of Addenda: 0 Note Initiated On: 07/25/2022 12:09 PM
--- NOTE | 2022-07-25 12:34 | OP.CCLET_ITS ---
07/25/2022 Tammy Jordan [address] [place] [address] Re : Colonoscopy procedure for Leonidas Lala Dear Dr. Jordan This procedure was performed on Monday, July 25, 2022. My impressions and recommendations are as follows: Impressions : - Diverticulosis in the recto-sigmoid colon and in the sigmoid colon. - Non-bleeding internal hemorrhoids. - The entire examined colon is normal on direct and retroflexion views. - The examined portion of the ileum was normal. - No specimens collected. Recommendations : - Discharge patient to home. - Resume previous diet. - Continue present medications. -High fiber diet and hydrocortisone suppositories 25 or 30 mg per rectum twice daily x2 weeks - No recommendation at this time regarding repeat colonoscopy due to age. My findings are described in the full procedure note, which is enclosed. If I can be of further assistance, please feel free to contact me at . Sincerely, Shyam Moreno, 07/25/2022 12:33:16 PM This report has been signed electronically.
--- NOTE | 2022-07-25 17:00 | DCINST_ITS ---
Discharge Instructions Diet Discharge Diet: - (Advance as tolerated) Activity Discharge Activity: Return to Normal Activity Follow Up Care Test Results: Test results from this visit will be discussed in further detail at your follow- up appointment, if applicable. Discharge Plan Admission Admit Date/Time: 07/24/22 16:58 Primary Reason for Your Visit: GI bleeding Attending Provider: Galina Ya Primary Care Provider: Tammy Jordan Consulting Providers: Arielle Rebollar Instructions Patient Instructions: ED Upper GI Bleeding (Stable) Additional Instructions / Restrictions: DISCHARGE INSTRUCTIONS PLEASE READ *Please take this with you to your next doctors appointment* -You were found to have gastric ulcers and will need to take pantoprazole 40 mg twice daily for 8 weeks and daily thereafter unless otherwise instructed by her primary care or stomach doctors -You will also need to use hydrocortisone suppositories which you can use up to twice daily for 2 weeks, further instructions and prescribing at the discretion of your gastrointestinal doctor. -Additionally you will be discharged on ferrous sulfate 3 times a day with vitamin C 3 times a day to help increase absorption -Iron can be constipating at times, would recommend increased fluid and fiber intake, if beginning to become constipated please contact your primary care physician to be placed on a bowel regimen -Would recommend lab work (CBC) to check your hemoglobin in 3 to 5 days through your primary care physician's office. Please call their office upon discharge to obtain order for lab work. -You will need to follow-up with Dr. Moreno with GI in his office upon discharge. Please call his office to schedule your hospital follow-up appointment (ph. [phone]) -Please call your primary care provider's office upon discharge to schedule a hospital follow up within 1 week. -For any concerning signs or symptoms please call 911 or proceed to the nearest emergency department Discharge Orders/Prescriptions Prescriptions: New ascorbic acid (vitamin C) 500 mg Tablet 500 mg PO TIDCM Qty: 90 0RF ferrous sulfate [FeroSul] 325 mg (65 mg iron) Tablet 325 mg PO TIDCM Qty: 90 0RF pantoprazole 40 mg Tablet,Delayed Release (Dr/Ec) 40 mg PO BID 60 Days Qty: 120 0RF hydrocortisone acetate 25 mg suppository 25 mg NM BID 14 Days Qty: 12 0RF Referrals / Follow Up: Tammy Jordan DO [Primary Care Provider] - Within 1 Week Shyam Moreno DO [Med Staff - Active Staff] - See Referral Note (You will need to follow-up with Dr. Moreno with GI in his office upon discharge. Please call his office to schedule your hospital follow-up appointment (ph. [phone])) Disposition Disposition (needs filled in before D/C Order can be placed): Home, Self Care
--- NOTE | 2022-07-25 17:16 | PCM.DC.SUM ---
Providers Date of Admission: 07/24/22 Date of Discharge: 07/25/22 Primary Care Physician: Dr. 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 Code(s): D50.0 - Iron deficiency anemia secondary to blood loss (chronic) (3) Gastric ulcer: Status: Acute Code(s): K25.9 - Gastric ulcer, unspecified as acute or chronic, without hemorrhage or perforation (4) Upper GI bleed: Status: Acute Code(s): K92.2 - Gastrointestinal hemorrhage, unspecified Plan #Upper GI bleed secondary to gastric ulcers #Iron deficiency anemia secondary to chronic blood loss #Chronic abdominal pain Medications at Discharge Home Medications ascorbic acid (vitamin C) 500 mg tablet 500 mg PO TIDCM #90 tabs 07/25/22 ferrous sulfate 325 mg (65 mg iron) tablet (FeroSul) 325 mg PO TIDCM #90 tabs 07/25/22 hydrocortisone acetate 25 mg rectal suppository 25 mg KS BID 2 weeks #12 ea 07/25/22 pantoprazole 40 mg tablet,delayed release 40 mg PO BID 60 days #120 tabs 07/25/22 Hospital Course Procedures - (Upper and lower endoscopies) Summary of Care Provided Minutes Spent on Discharge: 31 Hospital Course: Patient is a 42-year-old male with a history of chronic abdominal pain and iron deficiency anemia who presented to [facility] 07/24/2022 with rectal bleeding. He reports a long history of bleeding for at least 10 years with intermittent abdominal cramping and pain. Had a colonoscopy 10 years ago but does not believe that they found anything. Hemoglobin fluctuates but recently he decided to establish with GI. On day of presentation he had been seen in the GI office and iron studies showed significant iron deficiency and he was sent to the emergency department for admission for GI bleed and upper and lower endoscopies. In the ED his hemoglobin was 9.8. He was made n.p.o. and had upper and lower endoscopies on 07/25/2022, colonoscopy with diverticulosis and nonbleeding internal hemorrhoids. Upper endoscopy showed normal esophagus with nonbleeding gastric ulcers with no stigmata of bleeding. That was biopsied. Also had a oozing gastric ulcer with visible vessel which was injected and treated with heater probe. Is advised that he be started on 40 mg p.o. twice daily for 8 weeks and follow-up as an outpatient. Additionally was recommended that he use hydrocortisone suppositories. Seen evening of admission and he reports feeling well, does have some of the intermittent abdominal pain that is chronic with no acute changes, had no other complaints. Is comfortable with discharging home after trial of evening meal as he has tolerated everything up to this point. Discharge instructions as followed: -You were found to have gastric ulcers and will need to take pantoprazole 40 mg twice daily for 8 weeks and daily thereafter unless otherwise instructed by her primary care or stomach doctors -You will also need to use hydrocortisone suppositories which you can use up to twice daily for 2 weeks, further instructions and prescribing at the discretion of your gastrointestinal doctor. -Additionally you will be discharged on ferrous sulfate 3 times a day with vitamin C 3 times a day to help increase absorption -Iron can be constipating at times, would recommend increased fluid and fiber intake, if beginning to become constipated please contact your primary care physician to be placed on a bowel regimen -Would recommend lab work (CBC) to check your hemoglobin in 3 to 5 days through your primary care physician's office.? Please call their office upon discharge to obtain order for lab work. -You will need to follow-up with Dr. Moreno with GI in his office upon discharge.? Please call his office to schedule your hospital follow-up appointment (ph. [phone]) -Please call your primary care provider's office upon discharge to schedule a hospital follow up within 1 week. -For any concerning signs or symptoms please call 911 or proceed to the nearest emergency department Physical Exam Narrative General: Alert, oriented, no apparent distress HEENT: Atraumatic, normocephalic Eyes: Anicteric, normal conjunctiva, extraocular movements grossly intact Neck: Supple Respiratory: Clear to auscultation bilaterally, normal respiratory effort Cardiovascular: Regular rate and rhythm GI: Soft, nontender, nondistended Extremities: No edema Musculoskeletal: Moving all extremities Neuro: No overt focal neurological deficits Skin: No rashes appreciated Psych: Cooperative Weight / BMI Weight Weight: 100.924 kg Body Mass Index (BMI) 31.9 ABG / Lab / Microbiology Data Result Diagrams: 07/25/22 05:30 07/25/22 05:30 Laboratory: Laboratory Results - last 24 hr 07/25/22 05:30: WBC 6.5, RBC 3.82 L, Hgb 9.0 L, Hct 29.2 L, MCV 76.4 L, MCH 23.6 L, MCHC 30.8 L, RDW Std Deviation 48.0 H, RDW Coeff of Breanne 17.2 H, Plt Count 352, MPV 10.1, Immature Gran % (Auto) 0.200, Neut % (Auto) 60.8, Lymph % (Auto) 26.7, [place] % (Auto) 8.3, Eos % (Auto) 3.4, Baso % (Auto) 0.6, Absolute Neuts (auto) 3.9, Absolute Lymphs (auto) 1.73, Nucleated RBC % 0 07/25/22 05:30: Sodium 143, Potassium 4.0, Chloride 113 H, Carbon Dioxide 24.0, Anion Gap 6, BUN 12, Creatinine 0.91, Estim Creat Clear Calc 108.07, Est GFR (MDRD) Af Amer 117, Est GFR (MDRD) Non-Af 97, BUN/Creatinine Ratio 13.2, Glucose 99, Calcium 8.5, Phosphorus 3.7, Magnesium 2.1 07/25/22 05:30: PT 15.8 H, INR 1.3, APTT 35.9 Microbiology: Microbiology 07/24/22 15:30 Stool Stool Occult Blood (NATASHA) - Final Occult Blood Positive D/C Instructions Discharge Diet: - (Advance as tolerated) Meaningful Use Info Meaningful Use Diagnoses (Choose all that apply): None applicable Discharge Plan Admission Admit Date/Time: 07/24/22 16:58 Primary Reason for Your Visit: GI bleeding Attending Provider: Galina Ya Primary Care Provider: Tammy Jordan Consulting Providers: Arielle Rebolalr Instructions Patient Instructions: ED Upper GI Bleeding (Stable) Additional Instructions / Restrictions: DISCHARGE INSTRUCTIONS PLEASE READ *Please take this with you to your next doctors appointment* -You were found to have gastric ulcers and will need to take pantoprazole 40 mg twice daily for 8 weeks and daily thereafter unless otherwise instructed by her primary care or stomach doctors -You will also need to use hydrocortisone suppositories which you can use up to twice daily for 2 weeks, further instructions and prescribing at the discretion of your gastrointestinal doctor. -Additionally you will be discharged on ferrous sulfate 3 times a day with vitamin C 3 times a day to help increase absorption -Iron can be constipating at times, would recommend increased fluid and fiber intake, if beginning to become constipated please contact your primary care physician to be placed on a bowel regimen -Would recommend lab work (CBC) to check your hemoglobin in 3 to 5 days through your primary care physician's office. Please call their office upon discharge to obtain order for lab work. -You will need to follow-up with Dr. Moreno with GI in his office upon discharge. Please call his office to schedule your hospital follow-up appointment (ph. [phone]) -Please avoid all NSAIDs unless otherwise instructed by your primary care physician or gastrointestinal doctor -Please call your primary care provider's office upon discharge to schedule a hospital follow up within 1 week. -For any concerning signs or symptoms please call 911 or proceed to the nearest emergency department Discharge Orders/Prescriptions Prescriptions: New ascorbic acid (vitamin C) 500 mg Tablet 500 mg PO TIDCM Qty: 90 0RF ferrous sulfate [FeroSul] 325 mg (65 mg iron) Tablet 325 mg PO TIDCM Qty: 90 0RF pantoprazole 40 mg Tablet,Delayed Release (Dr/Ec) 40 mg PO BID 60 Days Qty: 120 0RF hydrocortisone acetate 25 mg suppository 25 mg KS BID 14 Days Qty: 12 0RF Referrals / Follow Up: Tammy Jordan DO [Primary Care Provider] - Within 1 Week Shyam Moreno DO [Med Staff - Active Staff] - See Referral Note (You will need to follow-up with Dr. Moreno with GI in his office upon discharge. Please call his office to schedule your hospital follow-up appointment (ph. [phone])) Disposition Disposition (needs filled in before D/C Order can be placed): Home, Self Care Charges/Coding Visit Charges Inpatient E&M: 38575 Disch Hosp >30min
[2022-07-25] MEDS: Ferrous Sulfate 325 MG Tablet PO (18:12)
[2022-07-25] MEDS: Pantoprazole Sodium 40 MG Tablet PO (18:12)
[2022-07-25] MEDS: Ascorbic Acid 500 MG Tablet PO (18:12)
--- NOTE | 2022-07-26 11:59 | CASEMGMT ---
Received tc from pt stating the protonix was unaffordable to him. Pt states he did try [facility] at [facility] but it was still $100. Looked up [facility] for [facility], med cost ranges from $15-27. Pt states this is affordable and is agreeable to use [facility] in [place]. TC to [place] [facility] who states they will honor the Good Rx. Dr. Ya sent rx to them. Then pt had questions regarding rectal bleeding, Dr. Ya spoke to him on the phone. Pt to come back to ER.
== END 2022-07-25 18:55 | disposition home or self-care (01) ==
LOC: ED 17:03 → MS3 17:46
PROVIDERS: Anesthesiology; Internal Medicine Gastroenterology; Nurse Practitioner; Admitting Provider Internal Medicine; Emergency Provider Emergency Medicine; PCP Internal Medicine; Visit Provider Internal Medicine
PROC: 0DJD8ZZ Inspection of Lower Intestinal Tract, Via Natural or Artificial Opening Endoscopic (ICD-10-PCS; CPT 45378; principal; 2022-07-25 11:40)
DX: K25.0 Acute gastric ulcer with hemorrhage (principal); D50.0 Iron deficiency anemia secondary to blood loss (chronic); Z87.891 Personal history of nicotine dependence; K57.30 Diverticulosis of large intestine without perforation or abscess without bleeding; R11.2 Nausea with vomiting, unspecified; K64.0 First degree hemorrhoids; R06.02 Shortness of breath; R10.9 Unspecified abdominal pain; R03.0 Elevated blood-pressure reading, without diagnosis of hypertension
CPT/HCPCS: 43255; 43239; 45378; 99284; 36415; 74177; 80048; 80053; 81001; 82274; 83690; 83735; 84100; 85025; 85610; 85730; 88305; 88342; 93005; 94668; 96361; 96365; 96366; 99221; 99252; 99406; J7030; J7050; J7120; Q9967; A4216; G0378; G0463; J2405; J2916

== ENCOUNTER 2022-07-28 07:28 | Inpatient (IN) | payer OTHER, SELFPAY ==
[2022-07-28] VITALS (7 sets, daily range): BP systolic 123–138; BP diastolic 78–102; PULSE 61–98; RESP 14–18; TEMP 36.5–37.1; O2SAT 96–100; BMI 32.3; BMI 30.9
--- NOTE | 2022-07-28 07:45 | EKG12_ITS ---
Test Reason : Blood Pressure : / mmHG Vent. Rate : 075 BPM Atrial Rate : 075 BPM P-R Int : 174 ms QRS Dur : 096 ms QT Int : 404 ms P-R-T Axes : 038 016 002 degrees QTc Int : 451 ms Sinus rhythm with occasional Premature ventricular complexes Increased R/S ratio in V1, consider early transition or posterior infarct Abnormal ECG Confirmed by TRES ABREU, NROEEN ([id number]), greeting card editor CLAU CASAS ([id number]) on 07/29/2022 7:57:32 AM Referred By: LON Confirmed By:NOREEN JOSHUA MD
--- NOTE | 2022-07-28 07:47 | EDS_ITS ---
HPI HPI - GI History of Present Illness Chief Complaint: GI Bleed Narrative Narrative: 42-year-old male past medical history of longstanding dark stool and GI problems. He states he saw Dr. Moreno's nurse practitioner on , 5 days ago. He was told to come to the emergency department and be admitted for scoping. Subsequently, he had operating lowered endoscopy performed by Dr. Moreno. He was found to have bleeding ulcers in his stomach. He denies any kizzy hematemesis. No use of NSAIDs. He was put on 4 different medications, and the following day continued to have bright red blood per rectum. He states his next bowel movement was relatively normal, then turned dark. Currently, he is having bright red blood per rectum, even without stool. At times he feels lightheaded as he had over the past few years. He may also feel short of breath. He had called the hospitalist on Thursday, 2 days ago and was told to return to the emergency department, but has not yet until today because he thought his symptoms would improve. He denies use of any blood thinners. He does not take other daily medications. [facility] Medical History Abdominal pain Anemia Blood in stool Diverticulitis Dizziness and giddiness GIB (gastrointestinal bleeding) Impingement syndrome of left shoulder LLQ pain Loose, teeth Nausea Home Medications ascorbic acid (vitamin C) 500 mg tablet 500 mg PO TIDCM #90 tabs 07/25/22 [Rx Last Taken Unknown] ferrous sulfate 325 mg (65 mg iron) tablet (FeroSul) 325 mg PO TIDCM #90 tabs 07/25/22 [Rx Last Taken Unknown] hydrocortisone acetate 25 mg rectal suppository 25 mg ID BID 2 weeks #12 ea 07/25/22 [Rx Last Taken Unknown] pantoprazole 40 mg tablet,delayed release 40 mg PO BID 30 days #60 tabs 07/26/22 [Rx Last Taken Unknown] Allergy/AdvReac Type Severity Reaction Status Date / Time No Known Allergies Allergy Verified 07/24/22 15:30 Family History Mother Skin cancer Leukemia Atrial fibrillation Surgical History Hx of appendectomy Social History household members: spouse and children housing: house current occupational status: employed Smoking Status: Former smoker Tobacco: How many years used: 28 how long ago did patient quit smoking: Patient quit smoking in February 2022 alcohol intake: current alcohol intake frequency: 3 or more drinks per day substance use type: marijuana and other details: Uses medical marijuana what type of physical activity do you participate in: additional details: yardwork do you feel safe at home: Yes ROS ROS ED ROS Narrative Constitutional: No fever, no chills. HEENT: No sore throat. No neck pain. No loss of vision. No rhinorrhea. Cardiovascular: No chest pain. No palpitations. No pedal edema. Respiratory: No cough, no shortness of breath. Abdominal: No abdominal pain. No nausea. No vomiting. No hematemesis. Bright red blood per rectum. Positive melena. Genitourinary: No dysuria. No hematuria. Musculoskeletal: No myalgias. No arthralgias. Neurologic: No headaches. No dizziness. No lightheadedness. Skin: No rash. No change in color. Psychiatric: No depression. No anxiety. EXAM Physical Exam Narrative Exam Narrative: Afebrile. Vital signs noted. HEENT: Normocephalic. Atraumatic. PERRL, EOMI. Neck soft and supple. No point tenderness or step off. Cardiovascular: Regular rate and rhythm. No murmurs, rubs, or gallops appreciated. Respiratory: No tachypnea. Lungs clear to auscultation bilaterally. Gastrointestinal: Abdomen soft, nontender, with normoactive bowel sounds. No rebound or guarding. Neurological: Awake. Alert. Nonfocal, nonlateralizing. Skin: No rash. Normal color. No pallor. Musculoskeletal: No pedal edema. Full range of motion extremities. Const Vital Signs: 07/28/22 07:28 07/28/22 08:51 Temperature 97.7 F L Temperature Source Temporal Pulse Rate 98 Pulse Rate [Lying] 68 Pulse Rate [Sitting (for 1 minute prior to obtaining)] 76 Pulse Rate [Standing (for 1 minute prior to obtaining)] 78 Respiratory Rate 18 Blood Pressure 138/102 H Blood Pressure [Lying] 133/87 H Blood Pressure [Sitting (for 1 minute prior to obtaining)] 131/86 H Blood Pressure [Standing (for 1 minute prior to obtaining)] 127/87 H Blood Pressure Mean 114 Blood Pressure Mean [Lying] 102 Blood Pressure Mean [Sitting (for 1 minute prior to obtaining)] 101 Blood Pressure Mean [Standing (for 1 minute prior to obtaining)] 100 Pulse Ox 100 Oxygen Delivery Method Room Air MDM MDM MDM Narrative Medical decision making narrative: I reviewed his prior records. Today, I will obtain CBC, BMP, type and screen. He will be given IV fluids at 125 mL/h. Given his reported bright red blood per rectum, concern is for brisk upper GI bleed. I will discuss patient with Dr. Moreno. I did review his colonoscopy and EGD reports. He had 2 nonbleeding ulcers, and 1 in the lesser curvature of the stomach that was oozing and was cauterized. Regarding his colonoscopy, he had nonbleeding internal hemorrhoids. There is the possibility that his GI bleeding could be more rectal. In review of his CBC, he did drop his hemoglobin to 8.5 from 9.0 a few days ago. His coag studies are negative with a normal INR of 1.2, APTT 31.4. In review of his BMP, he has a normal BUN of 12, and a creatinine of 0.86. Type and screen is currently pending. Orthostatics were reviewed and are negative. EKG was obtained and interpreted by myself. It demonstrates normal sinus rhythm with PVCs at [address] changes. No STEMI. I discussed the patient with Dr. Moreno. He will see the patient as an inpatien t for possible rescoping. Given that he was having bright red blood per rectum without stooling, there is a possibility of the internal hemorrhoid bleeding. I discussed patient with Dr. Chaudhary for admission to the PCU. Currently, patient is in stable condition. History & Record Review Discussion w/independent historian: Patient Additional record(s) reviewed:: Prior inpatient record Lab Data Attestation: I reviewed the patient's lab results. Labs: Laboratory Results - last 24 hr 07/28/22 07/28/22 07/28/22 08:00 08:00 08:00 WBC 7.2 RBC 3.63 L Hgb 8.5 L Hct 28.0 L MCV 77.1 L MCH 23.4 L MCHC 30.4 L RDW Std Deviation 46.3 H RDW Coeff of Breanne 17.0 H Plt Count 315 MPV 9.5 Immature Gran % (Auto) 0.600 Neut % (Auto) 62.4 Lymph % (Auto) 25.3 [place] % (Auto) 7.9 Eos % (Auto) 3.2 Baso % (Auto) 0.6 Absolute Neuts (auto) 4.5 Absolute Lymphs (auto) 1.83 Nucleated RBC % 0 PT 15.3 H INR 1.2 APTT 31.4 Sodium 138 Potassium 3.6 Chloride 107 Carbon Dioxide 25.0 Anion Gap 6 BUN 12 Creatinine 0.86 Estim Creat Clear Calc 114.36 Est GFR (MDRD) Af Amer 125 Est GFR (MDRD) Non-Af 104 BUN/Creatinine Ratio 14.0 Glucose 107 H Calcium 8.5 Antibody Screen 07/28/22 08:06 WBC RBC Hgb Hct MCV MCH MCHC RDW Std Deviation RDW Coeff of Breanne Plt Count MPV Immature Gran % (Auto) Neut % (Auto) Lymph % (Auto) [place] % (Auto) Eos % (Auto) Baso % (Auto) Absolute Neuts (auto) Absolute Lymphs (auto) Nucleated RBC % PT INR APTT Sodium Potassium Chloride Carbon Dioxide Anion Gap BUN Creatinine Estim Creat Clear Calc Est GFR (MDRD) Af Amer Est GFR (MDRD) Non-Af BUN/Creatinine Ratio Glucose Calcium Antibody Screen NEGATIVE Discharge Plan Dx/Rx/DC Orders Clinical Impression: Gastric ulcer, Upper GI bleed, Lightheadedness Disposition Disposition: Acute Care Hospital [facility]
--- NOTE | 2022-07-28 07:51 | NURSING ---
NO OLD EKGS
[2022-07-28 08:09] LABS: Absolute Lymphocyte Count 1.83 X10^3/uL (0.83-4.51); Absolute Neutrophil Count 4.5 X10^3/uL (2.0-7.7); Basophil# 0.04 X10^3/uL; Basophil% 0.6 % (0-1); Eosinophil# 0.23 X10^3/uL; Eosinophils% 3.2 % (0-5); Hemoglobin 8.5 g/dL (13.0-16.5); Lymphocyte # 1.83 X10^3/ul (0.83-4.51); Lymphocyte % 25.3 % (19-41); Mean Corp Hgb Conc 30.4 g/dL (32-36); Mean Corpuscular Hgb 23.4 pg (27.0-32.0); Mean Corpuscular Volume 77.1 fL (80-94); Mean Platelet Vol. 9.5 fl (6.2-12.0); Monocyte# 0.57 X10^3/uL; Monocyte% 7.9 % (0-10); NRBC Flagged by Analyzer 0 % (0-5); Neutrophil # 4.53 X10^3/uL (2.7-7.7); Neutrophil % 62.4 % (47-70); Platelet Count 315 K/mm3 (150-450); RBC Distribution Width SD 46.3 fl (35.1-43.9); Red Blood Count 3.63 M/mm3 (4.6-6.2); White Blood Count 7.2 K/mm3 (4.4-11.0)
[2022-07-28] MEDS: 0.9% Normal Saline 1,000 ML 125 ML IV ×2 (08:10→10:35)
[2022-07-28 08:23] LABS: International Normalized Ratio 1.2; Prothrombin Time (Protime)PT. 15.3 SECONDS (11.7-14.9)
[2022-07-28 08:24] LABS: Partial Thromboplast Time 31.4 Seconds (24.1-36.2)
[2022-07-28 08:25] LABS: Anion Gap 6 (5-15); BUN 12 mg/dL (7-18); Calcium,Total 8.5 mg/dL (8.5-10.1); Chloride 107 mmol/L (98-107); Creatinine, Serum 0.86 mg/dL (0.70-1.30); EST Glomerular Filtration Rate 104 mL/min (>60); Est Glom Filt Rate - Afr Amer 125 mL/min (>60); Estimated Creatinine Clearance 114.36 ml/min; Glucose 107 mg/dL (74-106); Potassium 3.6 mmol/L (3.5-5.1); Sodium Level 138 mmol/L (136-145)
--- NOTE | 2022-07-28 09:04 | PCM.HP.STD ---
[facility] - General General Date of Admission: 07/28/22 Date of Service: 07/28/22 Chief Complaint: Red bloody stool for last 2 days. HPI Narrative GUEVARA DAVIS, is a 42 M with recent EGD and colonoscopy and discharged 3 days ago on Thursday evening came back with feeling of dizziness lightheadedness and bright red rectal bleed for 2 days. Patient stated he went home on Thursday evening on Thursday. And then had 2 black stool patient started having bright red rectal bleed, sometimes dark since Thursday morning. This is continued today and patient had after admission on the floor. Patient denies chest pressure or shortness of breath but he said he sometimes feels chest sharp right-sided chest pain occasionally. Patient has history of drinking alcohol about 8 beers daily but he stated he just drank too. Last 1 month. He quit smoking past February 2022. Family history: Her mother has leukemia but denies history of cirrhosis or GI bleed in first-degree family relative. In ED, patient blood pressure was 120/106. He dropped BP from supine 127/64-115/68. His heart rate went up from 59-85/m on a standing. Orthostatic not positive but it shows drop. Patient is getting IV fluid resuscitation. [facility] Medical History Abdominal pain Anemia Blood in stool Diverticulitis Dizziness and giddiness GIB (gastrointestinal bleeding) Impingement syndrome of left shoulder LLQ pain Loose, teeth Nausea Home Medications ascorbic acid (vitamin C) 500 mg tablet 500 mg PO TIDCM #90 tabs 07/25/22 [Rx Last Taken Unknown] hydrocortisone acetate 25 mg rectal suppository 25 mg TN BID 2 weeks #12 ea 07/25/22 [Rx Last Taken Unknown] pantoprazole 40 mg tablet,delayed release 40 mg PO BID 30 days #60 tabs 07/26/22 [Rx Last Taken Unknown] ferrous sulfate 325 mg (65 mg iron) tablet (FeroSul) 325 mg PO BID 07/28/22 [History Last Taken Unknown] Allergy/AdvReac Type Severity Reaction Status Date / Time No Known Allergies Allergy Verified 07/24/22 15:30 Family History Mother Skin cancer Leukemia Atrial fibrillation Surgical History Hx of appendectomy Social History household members: spouse and children housing: house current occupational status: employed Smoking Status: Former smoker Tobacco: How many years used: 28 how long ago did patient quit smoking: Patient quit smoking in February 2022 alcohol intake: current alcohol intake frequency: 3 or more drinks per day substance use type: marijuana and other details: Uses medical marijuana what type of physical activity do you participate in: additional details: yardwork do you feel safe at home: Yes ROS ROS Narrative Constitutional: Reports fatigue and weakness, dizziness and low energy. No fever. HEENT: Reports systems reviewed and no addt'l complaints, except as documented Respiratory/Chest: Denies chest pressure, tightness or squeezing, shortness of breath at rest or with exertion Gastrointestinal: No vomiting this time. No hematemesis. Rest as described in HPI. Patient gets mild lower quadrant abdominal discomfort and after 30 minutes he gets hematochezia. Genitourinary: Denies burning urination or new urinary tract symptoms Musculoskeletal: Denies joint pain and limited range of motion Neurologic: Denies seizure-like activity. No syncope. skin: No ulcer. No rash. Endocrinology: Reports systems reviewed and no addt'l complaints, except as documented Hematologic/Lymphatic: Reports systems reviewed and no addt'l complaints, except as documented Rest 14 ROS are negative except as mentioned in HPI Vital Signs Vital Signs Vital Signs: 07/28/22 07:28 07/28/22 08:51 Temperature 97.7 F L Temperature Source Temporal Pulse Rate 98 Pulse Rate [Lying] 68 Pulse Rate [Sitting (for 1 minute prior to obtaining)] 76 Pulse Rate [Standing (for 1 minute prior to obtaining)] 78 Respiratory Rate 18 Blood Pressure 138/102 H Blood Pressure [Lying] 133/87 H Blood Pressure [Sitting (for 1 minute prior to obtaining)] 131/86 H Blood Pressure [Standing (for 1 minute prior to obtaining)] 127/87 H Blood Pressure Mean 114 Blood Pressure Mean [Lying] 102 Blood Pressure Mean [Sitting (for 1 minute prior to obtaining)] 101 Blood Pressure Mean [Standing (for 1 minute prior to obtaining)] 100 Pulse Ox 100 Oxygen Delivery Method Room Air Weight Weight: 225 lb Body Mass Index (BMI) 32.3 Physical Exam Narrative Physical exam General: Alert, Oriented x3, Cooperative. HEENT: Atraumatic, PERRLA, EOMI, Normocephalic. Conjunctiva pale. Oral: Oral mucosa dry. No Gingival or Mucosal Lesions/ Ulcerations Neck: Supple, No JVD, Negative Carotid Bruits Lungs: Air entry diminished in bilateral lung bases. No crepitation/rhonchi Cardiovascular: Regular rate, Regular Rhythm, Normal S1, Normal S2, No murmurs Abdomen: Bowel Sounds Present, Soft, Non Tender, Non-Distended : No renal angle tenderness. No suprapubic tenderness. Extremities: No edema, Capillary Refill Less than 3 Seconds Skin: No rashes, No breakdown. Musculoskeletal: No Tenderness to Palpation of Joints or Extremities. ROM full. Neurological: Cranial nerves II-XII grossly intact, DTR 2+/4, Neuro grossly intact Psych/Mental Status: Flat affect. Results Lab / Micro Data Result Diagrams: 07/28/22 14:00 07/28/22 08:00 Labs: Laboratory Results - last 24 hr 07/28/22 08:00: WBC 7.2, RBC 3.63 L, Hgb 8.5 L, Hct 28.0 L, MCV 77.1 L, MCH 23.4 L, MCHC 30.4 L, RDW Std Deviation 46.3 H, RDW Coeff of Breanne 17.0 H, Plt Count 315, MPV 9.5, Immature Gran % (Auto) 0.600, Neut % (Auto) 62.4, Lymph % (Auto) 25.3, [place] % (Auto) 7.9, Eos % (Auto) 3.2, Baso % (Auto) 0.6, Absolute Neuts (auto) 4.5, Absolute Lymphs (auto) 1.83, Nucleated RBC % 0 07/28/22 08:00: PT 15.3 H, INR 1.2, APTT 31.4 07/28/22 08:00: Sodium 138, Potassium 3.6, Chloride 107, Carbon Dioxide 25.0, Anion Gap 6, BUN 12, Creatinine 0.86, Estim Creat Clear Calc 114.36, Est GFR (MDRD) Af Amer 125, Est GFR (MDRD) Non-Af 104, BUN/Creatinine Ratio 14.0, Glucose 107 H, Calcium 8.5 07/28/22 08:06: Blood Type O POSITIVE, Antibody Screen NEGATIVE Assessment & Plan Assessment/Plan (1) Upper GI bleed: (2) Iron deficiency anemia secondary to blood loss (chronic): PLAN: Plan This is a 42-year-old gentleman who is getting readmitted for similar GI bleed after discharge 3 days ago. 1. Acute GI bleed probably lower GI bleed with recent EGD finding of oozing gastric ulcer with visible vessel and nonbleeding gastric ulcer: Patient started on pantoprazole 80 mg IV bolus and then 40 mg IV every 12 hourly. Monitor H&H every 6 hourly. GI is consulted.IV fluid Ringer lactate. Type and crossmatch. During previous admission, he is hemoglobin was 9.8. Patient had EGD and colonoscopy on 07/25/2022. Colonoscopy with diverticulosis and nonbleeding internal hemorrhoids.? EGD showed normal esophagus with nonbleeding gastric ulcers with no stigmata of bleeding. 1 oozing gastric ulcer with visible vessel which was injected and treated with heater probe. It seems patient has lower GI bleed noted can be upper with rapid transition. 2. Nonbleeding internal hemorrhoids and diverticulosis on recent colonoscopy: Continue hydrocortisone suppository. 3. Chronic severe alcohol use disorder: I do not think patient has risk for alcohol withdrawal as he just drinks 2 beers in last 1 month. Liver chemistry normal range. Right upper quadrant sonogram ordered. 4. Chronic iron deficiency anemia due to chronic blood loss: Hemoglobin is 8.5 and platelet count is 315,000. Ferrous sulfate on ascorbic acid. IV iron ordered. 5. VT prophylaxis moderate risk. Chemoprotectants contraindicated due to rectal bleeding. CODE STATUS full code Laboratory Results 07/28/22 08:00: WBC 7.2, RBC 3.63 L, Hgb 8.5 L, Hct 28.0 L, MCV 77.1 L, MCH 23.4 L, MCHC 30.4 L, RDW Std Deviation 46.3 H, RDW Coeff of Breanne 17.0 H, Plt Count 315, MPV 9.5, Immature Gran % (Auto) 0.600, Neut % (Auto) 62.4, Lymph % (Auto) 25.3, [place] % (Auto) 7.9, Eos % (Auto) 3.2, Baso % (Auto) 0.6, Absolute Neuts (auto) 4.5, Absolute Lymphs (auto) 1.83, Nucleated RBC % 0 07/28/22 08:00: PT 15.3 H, INR 1.2, APTT 31.4 07/28/22 08:00: Sodium 138, Potassium 3.6, Chloride 107, Carbon Dioxide 25.0, Anion Gap 6, BUN 12, Creatinine 0.86, Estim Creat Clear Calc 114.36, Est GFR (MDRD) Af Amer 125, Est GFR (MDRD) Non-Af 104, BUN/Creatinine Ratio 14.0, Glucose 107 H, Calcium 8.5 07/28/22 08:06: Blood Type O POSITIVE, Antibody Screen NEGATIVE Charges/Coding Visit Charges Inpatient E&M: 41589 Init Hosp L3
--- NOTE | 2022-07-28 09:06 | NURSING ---
PCU JACK GI BLEED
[2022-07-28 09:51] LABS: Magnesium 1.9 mg/dL (1.6-2.6)
[2022-07-28 14:05] LABS: Hematocrit 29.1 % (40-54); Hemoglobin 8.7 g/dL (13.0-16.5)
--- NOTE | 2022-07-28 14:21 | US_ITS ---
PROCEDURE: ABDOMINAL ULTRASOUND, RIGHT UPPER QUADRANT COMPARISONS: CT abdomen and pelvis 07/24/2022. CLINICAL INDICATION: upper GI Bleed, heavy alcohol drinking TECHNIQUE: Real-time rai-scale abdominal ultrasound. Limited color Doppler evaluation is performed. FINDINGS: Liver: Enlarged 19 cm with mildly increased echotexture diffusely. No focal parenchymal lesion. Gallbladder: Normal wall thickness. No gallstones. Sonographic Causey''s sign is absent. No pericholecystic fluid is present. Biliary Tree: Nondilated. Common bile duct measures 5 mm. Pancreas: Limited evaluation of the head and body is unremarkable. Right kidney: Normal in size and echogenicity. No hydronephrosis or stones. The right kidney measures 10.4 cm in long axis. Small cortical scar laterally. No free fluid. US/Abdomen Limited IMPRESSION: No acute findings in the right upper quadrant. Diffuse fatty infiltration of the liver. Electronically Signed: Jose Gamez MD at 18:09 EST ,
--- NOTE | 2022-07-28 16:16 | CON.PCM.GI_ITS ---
HPI Consult Data Date of Consult: 07/28/22 HPI Narrative Reason for Consultation: GI bleed HPI Narrative: GUEVARA DAVIS, is a 42 M who presents with lower GI bleeding. ?It started a few years ago, has been worse than ever for the past 3 wks. Accompanied by his mom. Has daily abdominal pain. Loose stools a couple times a week.? Has rectal b leeding even w/o passing stool. He has been treated for diverticulitis by primary care w/o relief of symptoms. On 07/08/22 his hgb was 8.4, iron 20, ferr 9, BUN 24. Increased rectal bleeding and rectal pain since then. He is dizzy and SOB.? He also has chronic nausea and vomiting.? He does use marijuana medical marijuana.? He noted he drinks about 3 alcoholic drinks a day and does smoke cigarettes on a daily basis.? He does not take any medicines on a daily basis. Patient states that he has been dealing with this for multiple years.? This comes in waves, he will have multiple weeks where he has significant rectal bleeding where he gets dizzy, lightheaded.? Patient in the past has had CAT sc ans, colonoscopies and has not had any diagnosis.? Patient states that over the last 3 weeks, has been having worsening abdominal pain, blood in stool.? Patient's last blood in stool was this morning.? He saw my nurse practitioner on , 5 days ago. He was told to come to the emergency department and be admitted for scoping. He was found to have bleeding ulcers in his stomach. He denies any kizzy hematemesis. No use of NSAIDs. He was put on 4 different medications, and the following day continued to have bright red blood per rectum. He states his next bowel movement was relatively normal, then turned dark. Currently, he is having bright red blood per rectum, even without stool. At times he feels lightheaded as he had over the past few years. He may also feel short of breath. He had called the hospitalist on Thursday, 2 days ago and was told to return to the emergency department, but has not yet until today because he thought his symptoms would improve. He denies use of any blood thinners. He does not take other daily medications. [facility] Medical History Abdominal pain Anemia Blood in stool Diverticulitis Dizziness and giddiness GIB (gastrointestinal bleeding) Impingement syndrome of left shoulder LLQ pain Loose, teeth Nausea Home Medications ascorbic acid (vitamin C) 500 mg tablet 500 mg PO TIDCM #90 tabs 07/25/22 [Rx Last Taken Unknown] hydrocortisone acetate 25 mg rectal suppository 25 mg MT BID 2 weeks #12 ea 07/25/22 [Rx Last Taken Unknown] pantoprazole 40 mg tablet,delayed release 40 mg PO BID 30 days #60 tabs 07/26/22 [Rx Last Taken Unknown] ferrous sulfate 325 mg (65 mg iron) tablet (FeroSul) 325 mg PO BID 07/28/22 [History Last Taken Unknown] Allergy/AdvReac Type Severity Reaction Status Date / Time No Known Allergies Allergy Verified 07/24/22 15:30 Family History Mother Skin cancer Leukemia Atrial fibrillation Surgical History Hx of appendectomy Social History household members: spouse and children housing: house current occupational status: employed Smoking Status: Former smoker Tobacco: How many years used: 28 how long ago did patient quit smoking: Patient quit smoking in February 2022 alcohol intake: current alcohol intake frequency: 3 or more drinks per day substance use type: marijuana and other details: Uses medical marijuana what type of physical activity do you participate in: additional details: yardw ork do you feel safe at home: Yes ROS ROS Narrative Constitutional: Reports fatigue and weakness, dizziness and low energy. No fever. HEENT: Reports systems reviewed and no addt'l complaints, except as documented Respiratory/Chest: Denies chest pressure, tightness or squeezing, shortness of breath at rest or with exertion Gastrointestinal: No vomiting this time. No hematemesis. Rest as described in HPI. Patient gets mild lower quadrant abdominal discomfort and after 30 minutes he gets hematochezia. Genitourinary: Denies burning urination or new urinary tract symptoms Musculoskeletal: Denies joint pain and limited range of motion Neurologic: Denies seizure-like activity. No syncope. skin: No ulcer. No rash. Endocrinology: Reports systems reviewed and no addt'l complaints, except as documented Hematologic/Lymphatic: Reports systems reviewed and no addt'l complaints, except as documented Rest 14 ROS are negative except as mentioned in HPI Physical Exam Narrative Physical exam General: Alert, Oriented x3, Cooperative. HEENT: Atraumatic, PERRLA, EOMI, Normocephalic. Conjunctiva pale. Oral: Oral mucosa dry. No Gingival or Mucosal Lesions/ Ulcerations Neck: Supple, No JVD, Negative Carotid Bruits Lungs: Air entry diminished in bilateral lung bases. No crepitation/rhonchi Cardiovascular: Regular rate, Regular Rhythm, Normal S1, Normal S2, No murmurs Abdomen: Bowel Sounds Present, Soft, Non Tender, Non-Distended : No renal angle tenderness. No suprapubic tenderness. Extremities: No edema, Capillary Refill Less than 3 Seconds Skin: No rashes, No breakdown. Musculoskeletal: No Tenderness to Palpation of Joints or Extremities. ROM full. Neurological: Cranial nerves II-XII grossly intact, DTR 2+/4, Neuro grossly intact Psych/Mental Status: Flat affect. Lab / Micro Data Result Diagrams: 07/28/22 14:00 07/28/22 08:00 Labs: Laboratory Results - last 24 hr 07/28/22 08:00: WBC 7.2, RBC 3.63 L, Hgb 8.5 L, Hct 28.0 L, MCV 77.1 L, MCH 23.4 L, MCHC 30.4 L, RDW Std Deviation 46.3 H, RDW Coeff of Breanne 17.0 H, Plt Count 315, MPV 9.5, Immature Gran % (Auto) 0.600, Neut % (Auto) 62.4, Lymph % (Auto) 25.3, [place] % (Auto) 7.9, Eos % (Auto) 3.2, Baso % (Auto) 0.6, Absolute Neuts (auto) 4.5, Absolute Lymphs (auto) 1.83, Nucleated RBC % 0 07/28/22 08:00: PT 15.3 H, INR 1.2, APTT 31.4 07/28/22 08:00: Sodium 138, Potassium 3.6, Chloride 107, Carbon Dioxide 25.0, Anion Gap 6, BUN 12, Creatinine 0.86, Estim Creat Clear Calc 114.36, Est GFR (MDRD) Af Amer 125, Est GFR (MDRD) Non-Af 104, BUN/Creatinine Ratio 14.0, Glucose 107 H, Calcium 8.5 07/28/22 08:00: Magnesium 1.9 07/28/22 08:06: Blood Type O POSITIVE, Antibody Screen NEGATIVE 07/28/22 14:00: Hgb 8.7 L, Hct 29.1 L Assessment & Plan Assessment/Plan (1) Acute lower gastrointestinal bleeding: (2) Abdominal pain: (3) Iron deficiency anemia secondary to blood loss (chronic): PLAN: Plan Lower GI bleeding -Patient with rectal hemorrhaging periodically for some time now -Iron studies are consistent with iron deficiency anemia -Per discussion with Dr. Moreno plan is for EGD and flex sig tomorrow -Clear liquid diet tonight -IV fluids with LR at 75 cc/h at midnight -N.p.o. after midnight - He will only need tap water enemas Iron deficiency anemia -Due to chronic blood loss -Hemoglobin is 9.8 which is relatively stable compared to his previous -Anemia is microcytic and recent iron studies are consistent with iron deficiency -IV iron 200 mg x 1 dos today - Elevated blood pressure -No history of hypertension -We will use as needed's with hydralazine for systolic blood pressure greater than 160 Abdominal pain -CT of the abdomen only shows focal cortical scar on the lateral aspect of the right kidney with no other acute abnormalities noted -EGD flexsig tomorrow DVT prophylaxis -SCDs -Chemoprophylaxis contraindicated with rectal bleeding CODE STATUS -Full code Charges/Coding Visit Charges Inpatient E&M: 25250 Init Hosp L3
[2022-07-28] MEDS: Lactated Ringers 1,000 ML 125 ML IV ×2 (16:42→22:14)
[2022-07-28] MEDS: Ascorbic Acid 500 MG Tablet PO (16:45)
[2022-07-28 20:46] LABS: Hematocrit 26.6 % (40-54); Hemoglobin 8.2 g/dL (13.0-16.5)
[2022-07-28] MEDS: Hydrocortisone 25 MG Suppository RC (22:18)
[2022-07-29] VITALS (12 sets, daily range): BP systolic 102–129; BP diastolic 57–81; PULSE 57–79; RESP 15–18; TEMP 36–36.8; O2SAT 92–100; BMI 30.7
--- NOTE | 2022-07-29 03:56 | EKG12_ITS ---
Test Reason : am ekg Blood Pressure : / mmHG Vent. Rate : 058 BPM Atrial Rate : 058 BPM P-R Int : 182 ms QRS Dur : 098 ms QT Int : 432 ms P-R-T Axes : 058 036 005 degrees QTc Int : 424 ms Sinus bradycardia Otherwise normal ECG Confirmed by LANDY ABREU, BACILIO ([id number]), industrial editor CLAU CASAS ([id number]) on 07/30/2022 10:28:17 AM Referred By: Jet Confirmed By:BACILIO BILL MD
[2022-07-29 06:00] LABS: Absolute Lymphocyte Count 1.44 X10^3/uL (0.83-4.51); Absolute Neutrophil Count 2.8 X10^3/uL (2.0-7.7); Basophil# 0.04 X10^3/uL; Basophil% 0.8 % (0-1); Eosinophil# 0.24 X10^3/uL; Eosinophils% 4.8 % (0-5); Hematocrit 25.5 % (40-54); Hemoglobin 7.9 g/dL (13.0-16.5); Lymphocyte # 1.44 X10^3/ul (0.83-4.51); Lymphocyte % 28.5 % (19-41); Mean Corpuscular Hgb 24.1 pg (27.0-32.0); Mean Corpuscular Volume 77.7 fL (80-94); Mean Platelet Vol. 10.3 fl (6.2-12.0); Monocyte# 0.51 X10^3/uL; Monocyte% 10.1 % (0-10); NRBC Flagged by Analyzer 0 % (0-5); Neutrophil # 2.79 X10^3/uL (2.7-7.7); Neutrophil % 55.2 % (47-70); Platelet Count 277 K/mm3 (150-450); RBC Distribution Width CV 17.8 % (11.6-14.6); RBC Distribution Width SD 47.7 fl (35.1-43.9); Red Blood Count 3.28 M/mm3 (4.6-6.2); White Blood Count 5.1 K/mm3 (4.4-11.0)
[2022-07-29 06:56] LABS: Anion Gap 6 (5-15); BUN 8 mg/dL (7-18); BUN/Creat Ratio 8.8 RATIO (10-20); Calcium,Total 8.8 mg/dL (8.5-10.1); Chloride 110 mmol/L (98-107); Creatinine, Serum 0.91 mg/dL (0.70-1.30); EST Glomerular Filtration Rate 97 mL/min (>60); Est Glom Filt Rate - Afr Amer 117 mL/min (>60); Estimated Creatinine Clearance 108.07 ml/min; Glucose 98 mg/dL (74-106); Potassium 3.7 mmol/L (3.5-5.1); Sodium Level 143 mmol/L (136-145)
[2022-07-29] MEDS: Hydrocortisone 25 MG Suppository RC (08:00)
[2022-07-29] MEDS: Lactated Ringers 1,000 ML 15 ML IV (10:49)
--- NOTE | 2022-07-29 11:30 | IMM_PTH ---
PATIENT: GUEVARA DAVIS LOC: PCU U#:[id number] AGE/SX: 42/M ROOM: [facility] RE07/28/[address]: Dr. Patrick Chaudhary MD : 1980 BED: 1 DIS: 07/30/2022 SPEC #: [id number] RECD: 07/30/22 09:38 STATUS: ROLANDO REQ #: [id number] MELISSA: 07/29/22 11:[address]: Shyam Moreno DEPT: IMMUNOHISTOCHEMISTRY RECD BY: Sarahi Locke ENTERED: 07/30/22 09:40 SP TYPE: IMMUNO OTHR DR: DO Dr. Patrick Álvarez MD Tissues: Stomach, NOS Procedures: H Pylori (initial) PHYSICIAN & INSTITUTION [place] [id number] SPECIMEN INFORMATION: Tissue Source: Gastric antrum biopsy Clinical Info: Acute lower GI bleeding, abdominal pain, iron deficiency anemia Specimen Number: [id number] CPT code: 89707 METHODOLOGY: Deparaffinized sections of prefer/formalin-fixed tissue or PAP/DQ stained slides are incubated with monoclonal/polyclonal antibodies/oligonucleotide probes. Localization is made via biotin free immunoperoxidase method. Appropriate controls are performed and reacted as expected. Results on target cell population are indicated in the following table: RESULTS: ANTIBODY / CLONE RESULT H Pylori (polyclonal) negative These tests were developed and their performance characteristics determined by [facility]. They may not have been cleared or approved by the U.S. Food and Drug Administration. The FDA has determined that such clearance or approval is not necessary. The above immunohistochemical/dualISH markers are ordered and reviewed by the Pathologist. INTERPRETATION: Gastric antrum, biopsy: Negative for Helicobacter pylori organisms. LEEANN:shiraz 07/31/2022
--- NOTE | 2022-07-29 11:30 | EGD_PTH ---
PATIENT: GUEVARA DAVIS LOC: [facility] U#:[id number] AGE/SX: 42/M ROOM: [facility] RE07/28/[address]: Dr. Patrick Chaudhary MD : 1980 BED: 1 DIS: 07/30/2022 SPEC #: [id number] RECD: 07/29/22 14:24 STATUS: ROLANDO EPSTEIN #: [id number] MELISSA: 07/29/22 11:[address]: Shyam Moreno DEPT: SURGICAL PATHOLOGY RECD BY: Cecille Shanks ENTERED: 07/30/22 08:13 SP TYPE: EGD BIOPSY [facility] DR: Dr. Tammy Jordan, DO Dr. Patrick Chaudhary MD Tissues: Gastric mucous membrane Procedures: Surgery Specimen Level IV HEADER OPERATION: EGD ([facility]), biopsy PRE-OP DIAGNOSIS: Acute lower GI bleeding, abdominal pain, iron deficiency anemia TISSUE SUBMITTED: Gastric antrum biopsy for histo and H. pylori MICROSCOPIC DIAGNOSIS Gastric antrum, biopsy: Moderate chronic active gastritis. See comment. LEEANN:shiraz 07/31/2022 COMMENT The results of immunohistochemistry for Helicobacter pylori will be reported separately ([id number]). MICROSCOPIC DESCRIPTION Slides are reviewed. GROSS DESCRIPTION Received in fixative is one container labeled with the patient's name and designated gastric antrum biopsy. The specimen consists of two irregular fragments of light wallace soft tissue that in aggregate measure 0.8 x 0.4 x 0.1 cm. The specimen is totally submitted in one cassette. / LEEANN:shiraz 07/30/2022 TC:2 CPT: 19981
--- NOTE | 2022-07-29 12:11 | OP.EGD_ITS ---
Patient Name: Leonidas Lala Procedure Date: 07/29/2022 11:34 AM Date of : 1980 Age: 42 Procedure: Upper GI endoscopy Indications: Acute post hemorrhagic anemia Providers: Shyam Moreno DO Medicines: Monitored Anesthesia Care Patient Profile: This is a 42 year old male. Refer to note in patient chart for documentation of history and physical. Patient has symptoms of acute epigastric abdominal pain. He is status post colonoscopy for treatment of bleeding and EGD for ulcer treatment within the past month. Complications: No immediate complications. Procedure: Pre-Anesthesia Assessment: - Prior to the procedure, a History and Physical was performed, and patient medications and allergies were reviewed. The patient is competent. The risks and benefits of the procedure and the sedation options and risks were discussed with the patient. All questions were answered and informed consent was obtained. Patient identification and proposed procedure were verified by the physician in the pre-procedure area. Mental Status Examination: alert and oriented. Airway Examination: normal oropharyngeal airway and neck mobility. Respiratory Examination: clear to auscultation. CV Examination: normal. Prophylactic Antibiotics: The patient does not require prophylactic antibiotics. Prior Anticoagulants: The patient has taken no previous anticoagulant or antiplatelet agents. ASA Grade Assessment: II - A patient with mild systemic disease. After reviewing the risks and benefits, the patient was deemed in satisfactory condition to undergo the procedure. The anesthesia plan was to use monitored anesthesia care (MAC). Immediately prior to administration of medications, the patient was re-assessed for adequacy to receive sedatives. The heart rate, respiratory rate, oxygen saturations, blood pressure, adequacy of pulmonary ventilation, and response to care were monitored throughout the procedure. The physical status of the patient was re-assessed after the procedure. After obtaining informed consent, the endoscope was passed under direct vision. Throughout the procedure, the patient's blood pressure, pulse, and oxygen saturations were monitored continuously. The Endoscope was introduced through the mouth, and advanced to the second part of duodenum. The upper GI endoscopy was accomplished without difficulty. The patient tolerated the procedure well. Scope In: 11:48:39 AM Scope Out: 11:51:54 AM Total Procedure Duration Time 0 hours 3 minutes 15 seconds Findings: The examined esophagus was normal. Patchy mildly erythematous mucosa without bleeding was found in the gastric antrum. Biopsies were taken with a cold forceps for histology. Verification of patient identification for the specimen was done. Estimated blood loss was minimal. The second portion of the duodenum was normal. Biopsies were taken with a cold forceps for histology. Verification of patient identification for the specimen was done. Estimated blood loss was minimal. Impression: - Normal esophagus. - Erythematous mucosa in the antrum. Biopsied. - Normal second portion of the duodenum. Biopsied. Recommendation: - Return patient to hospital [facility] for ongoing care. - Resume previous diet. - Continue present medications. - Await pathology results. Procedure Code(s): --- Professional --- 69954, Esophagogastroduodenoscopy, flexible, transoral; with biopsy, single or multiple CPT copyright 2017 [employer]. All rights reserved. The codes documented in this report are preliminary and upon lump machine operator review may be revised to meet current compliance requirements. Shyam Moreno DO 07/29/2022 12:11:27 PM This report has been signed electronically. Number of Addenda: 0 Note Initiated On: 07/29/2022 11:34 AM
--- NOTE | 2022-07-29 12:12 | OP.CCLET_ITS ---
07/29/2022 Tammy Jordan [address] [place] [address] Re : Upper GI endoscopy procedure for Leonidas Lala Dear Dr. Jordan This procedure was performed on Friday, July 29, 2022. My impressions and recommendations are as follows: Impressions : - Normal esophagus. - Erythematous mucosa in the antrum. Biopsied. - Normal second portion of the duodenum. Biopsied. Recommendations : - Return patient to hospital [facility] for ongoing care. - Resume previous diet. - Continue present medications. - Await pathology results. My findings are described in the full procedure note, which is enclosed. If I can be of further assistance, please feel free to contact me at . Sincerely, Shyam Moreno, 07/29/2022 12:11:27 PM This report has been signed electronically.
--- NOTE | 2022-07-29 12:17 | OP.FLEXSIG_ITS ---
Patient Name: Leonidas Lala Procedure Date: 07/29/2022 11:53 AM Date of : 1980 Age: 42 Procedure: Flexible Sigmoidoscopy Indications: Hematochezia Providers: Shyam Moreno DO Medicines: Monitored Anesthesia Care Patient Profile: This is a 42 year old male. Refer to note in patient chart for documentation of history and physical. Patient has symptoms of acute epigastric abdominal pain. He is status post colonoscopy for treatment of bleeding and EGD for ulcer treatment within the past month. Complications: No immediate complications. Procedure: Pre-Anesthesia Assessment: - Prior to the procedure, a History and Physical was performed, and patient medications and allergies were reviewed. The patient is competent. The risks and benefits of the procedure and the sedation options and risks were discussed with the patient. All questions were answered and informed consent was obtained. Patient identification and proposed procedure were verified by the physician in the pre-procedure area. Mental Status Examination: alert and oriented. Airway Examination: normal oropharyngeal airway and neck mobility. Respiratory Examination: clear to auscultation. CV Examination: normal. Prophylactic Antibiotics: The patient does not require prophylactic antibiotics. Prior Anticoagulants: The patient has taken no previous anticoagulant or antiplatelet agents. ASA Grade Assessment: II - A patient with mild systemic disease. After reviewing the risks and benefits, the patient was deemed in satisfactory condition to undergo the procedure. The anesthesia plan was to use monitored anesthesia care (MAC). Immediately prior to administration of medications, the patient was re-assessed for adequacy to receive sedatives. The heart rate, respiratory rate, oxygen saturations, blood pressure, adequacy of pulmonary ventilation, and response to care were monitored throughout the procedure. The physical status of the patient was re-assessed after the procedure. After obtaining informed consent, the endoscope was passed under direct vision. Throughout the procedure, the patient's blood pressure, pulse, and oxygen saturations were monitored continuously. The Endoscope was introduced through the anus and advanced to the splenic flexure. The flexible sigmoidoscopy was accomplished without difficulty. The patient tolerated the procedure well. The quality of the bowel preparation was fair. Scope In: 11:54:35 AM Scope Out: 12:02:48 PM Total Procedure Duration Time 0 hours 8 minutes 13 seconds Findings: Hemorrhoids were found on perianal exam. A few small-mouthed diverticula were found in the sigmoid colon. Bleeding external and internal hemorrhoids were found during retroflexion. The hemorrhoids were Grade III (internal hemorrhoids that prolapse but require manual reduction). A hemorrhoid was isolated with endoscopy. The ligator was positioned over the hemorrhoid at the left lateral position. Suction was applied and one rubber band was placed over the hemorrhoid. This was checked to make certain that the muscularis was free of the band. Post-banding digital rectal exam showed band in good position. The patient appeared stable and comfortable at the end of the procedure. Impression: - Preparation of the colon was fair. - Hemorrhoids found on perianal exam. - Diverticulosis in the sigmoid colon. - Bleeding external and internal hemorrhoids. Banded. - No specimens collected. Recommendation: - Use fiber, for example Citrucel, Fibercon, Konsyl or Metamucil. Procedure Code(s): --- Professional --- 22308, Sigmoidoscopy, flexible; with band ligation(s) (eg, hemorrhoids) CPT copyright 2017 [employer]. All rights reserved. The codes documented in this report are preliminary and upon architecture manager review may be revised to meet current compliance requirements. Shyam Moreno DO 07/29/2022 12:17:03 PM This report has been signed electronically. Number of Addenda: 0 Note Initiated On: 07/29/2022 11:53 AM
--- NOTE | 2022-07-29 12:18 | OP.CCLET_ITS ---
07/29/2022 Tammy Jordan [address] [place] [address] Re : Flexible Sigmoidoscopy procedure for Leonidas Lala Dear Dr. Jordan This procedure was performed on Friday, July 29, 2022. My impressions and recommendations are as follows: Impressions : - Preparation of the colon was fair. - Hemorrhoids found on perianal exam. - Diverticulosis in the sigmoid colon. - Bleeding external and internal hemorrhoids. Banded. - No specimens collected. Recommendations : - Use fiber, for example Citrucel, Fibercon, Konsyl or Metamucil. My findings are described in the full procedure note, which is enclosed. If I can be of further assistance, please feel free to contact me at . Sincerely, Shyam Friend, 07/29/2022 12:17:03 PM This report has been signed electronically.
--- NOTE | 2022-07-29 13:43 | PN.HOSP_ITS ---
Reason for Visit Reason for Visit: Follow-up for acute lower GI bleed Diagnoses Iron deficiency anemia secondary to blood loss (chronic) (07/28/22) Gastrointestinal hemorrhage, unspecified (07/28/22) Unspecified abdominal pain (07/28/22) Objective Data Objective Data Vital Signs: Vital Signs Temp Pulse Resp BP Pulse Ox O2 Del Method 98.3 F 70 16 129/81 H 99 Room Air 07/29/22 12:40 07/29/22 12:40 07/29/22 12:40 07/29/22 12:40 07/29/22 12:40 07/29/22 12:40 Oxygen Delivery Method Room Air Weight: 213 lb 13.574 oz Body Mass Index (BMI) 30.7 Intake & Output: Intake and Output for Last 24 Hours 07/27/22 07/28/22 07/29/22 23:59 23:59 23:59 Intake Total 2735.08 / 2735.08 1510 / 1510 Balance 2735.08 / 2735.08 1510 / 1510 Lab / Micro Data Result Diagrams: 07/29/22 05:28 07/29/22 05:28 Labs: Laboratory Results - last 24 hr 07/28/22 14:00: Hgb 8.7 L, Hct 29.1 L 07/28/22 20:20: Hgb 8.2 L, Hct 26.6 L 07/29/22 05:28: Sodium 143, Potassium 3.7, Chloride 110 H, Carbon Dioxide 27.0, Anion Gap 6, BUN 8, Creatinine 0.91, Estim Creat Clear Calc 108.07, Est GFR (MDRD) Af Amer 117, Est GFR (MDRD) Non-Af 97, BUN/Creatinine Ratio 8.8 L, Glucose 98, Calcium 8.8 07/29/22 05:28: WBC 5.1, RBC 3.28 L, Hgb 7.9 L, Hct 25.5 L, MCV 77.7 L, MCH 24.1 L, MCHC 31.0 L, RDW Std Deviation 47.7 H, RDW Coeff of Breanne 17.8 H, Plt Count 277, MPV 10.3, Immature Gran % (Auto) 0.600, Neut % (Auto) 55.2, Lymph % (Auto) 28.5, Edmunds % (Auto) 10.1 H, Eos % (Auto) 4.8, Baso % (Auto) 0.8, Absolute Neuts (auto) 2.8, Absolute Lymphs (auto) 1.44, Nucleated RBC % 0 Radiography Diagnostic Testing: Radiology Impression Abdomen Ultrasound 07/28/22 14:21 IMPRESSION: No acute findings in the right upper quadrant. Diffuse fatty infiltration of the liver. Electronically Signed: Jose Gamez MD at 18:09 EST , Physical Exam Narrative Serial H&H shows drop in hemoglobin from 8.5-7.9. His baseline is 13 g. Patient had 4 more bright red rectal bleed after I saw him yesterday morning. He feels dizzy on standing up. Physical exam General: Alert, Oriented x3, Cooperative. HEENT: Atraumatic, PERRLA, EOMI, Normocephalic. Conjunctiva pale. Oral: Oral mucosa dry. No Gingival or Mucosal Lesions/ Ulcerations Neck: Supple, No JVD, Negative Carotid Bruits Lungs: Air entry diminished in bilateral lung bases. No crepitation/rhonchi Cardiovascular: Regular rate, Regular Rhythm, Normal S1, Normal S2, No murmurs Abdomen: Bowel Sounds Present, Soft, Non Tender, Non-Distended : No renal angle tenderness. No suprapubic tenderness. Extremities: No edema, Capillary Refill Less than 3 Seconds Skin: No rashes, No breakdown. Musculoskeletal: No Tenderness to Palpation of Joints or Extremities. ROM full. Neurological: Cranial nerves II-XII grossly intact, DTR 2+/4, Neuro grossly intact Psych/Mental Status: Flat affect. Assessment & Plan Assessment/Plan (1) Upper GI bleed: (2) Iron deficiency anemia secondary to blood loss (chronic): PLAN: Plan This is a 42-year-old gentleman who is getting readmitted for similar GI bleed after discharge 3 days ago. 1. Acute GI bleed probably lower GI bleed with recent EGD finding of oozing gastric ulcer with visible vessel and nonbleeding gastric ulcer: Patient started on pantoprazole 80 mg IV bolus and then 40 mg IV every 12 hourly. Monitor H&H every 6 hourly. GI is consulted.IV fluid Ringer lactate. Type and crossmatch. During previous admission, he is hemoglobin was 9.8. Patient had EGD and colonoscopy on 07/25/2022. Colonoscopy with diverticulosis and nonbleeding internal hemorrhoids.? EGD showed normal esophagus with nonbleeding gastric ulcers with no stigmata of bleeding. 1 oozing gastric ulcer with visible vessel which was injected and treated with heater probe. It seems patient has lower GI bleed noted can be upper with rapid transition. 07/29:Serial H&H shows drop in hemoglobin from 8.5-7.9. IV iron ordered. Patient seen by GI and plan for EGD and sigmoidoscopy possible hemorrhoidal clipping. 2. Nonbleeding internal hemorrhoids and diverticulosis on recent colonoscopy: Continue hydrocortisone suppository. 3. Chronic severe alcohol use disorder: I do not think patient has risk for alcohol withdrawal as he just drinks 2 beers in last 1 month. Liver chemistry normal range. Right upper quadrant sonogram ordered. 4. Chronic iron deficiency anemia due to chronic blood loss: Hemoglobin is 8.5 and platelet count is 315,000. Ferrous sulfate on ascorbic acid. IV iron ordered. 5. VT prophylaxis moderate risk. Pharmacological prophylaxis contraindicated due to rectal bleeding. CODE STATUS full code Charges/Coding Visit Charges Inpatient E&M: 06117 Subs Hosp L2
[2022-07-29] MEDS: Morphine 4 MG/ML Syringe IV (14:30)
[2022-07-29] MEDS: Ascorbic Acid 500 MG Tablet PO ×2 (15:33)
[2022-07-29] MEDS: Docusate Sodium 100 MG Capsule PO ×2 (15:33→21:15)
[2022-07-29] MEDS: Ferrous Sulfate 325 MG Tablet PO (15:34)
[2022-07-29] MEDS: 0.9% Saline Lock 10 ML Syringe IV (21:18)
[2022-07-30 04:01] VITALS: BP 136/76; PULSE 59; RESP 16; TEMP 37; O2SAT 100
[2022-07-30 07:51] VITALS: O2SAT 96
[2022-07-30 08:00] VITALS: RESP 16
--- NOTE | 2022-07-30 08:20 | DCINST_ITS ---
Discharge Instructions Diet Discharge Diet: No restrictions Activity Discharge Activity: Return to Normal Activity Weight Bearing Status: Weight bearing as tolerated Dressing / Incision Call your doctor if you observe: Fever of 101 or Higher, Coldness, Increased Pain, Numbness or Tingling, Change in Color, Inability to urinate, Inability to have a bowel movement, Shortness of breath, Dizziness, Fainting spells, Swelling in the ankles, Chest pain, Prolonged hiccupping, Increased palpitations (irregular heartbeat) and Calf discomfort Suture Line Care: Avoid Pulling/Pushing Follow Up Care When: IN 2 WEEKS Test Results: Test results from this visit will be discussed in further detail at your follow- up appointment, if applicable. Discharge Plan Admission Admit Date/Time: 07/28/22 08:57 Primary Reason for Your Visit: Acute lower GI Bleed Attending Provider: Patrick Chaudhary Primary Care Provider: Tammy Jordan Discharge Orders/Prescriptions Prescriptions: New Metamucil (with sugar) 3.4 gram/7 gram powder 2 tsp PO BID Qty: 822 0RF Continued ascorbic acid (vitamin C) 500 mg Tablet 500 mg PO TIDCM Qty: 90 0RF hydrocortisone acetate 25 mg suppository 25 mg UT BID 14 Days Qty: 12 0RF pantoprazole 40 mg tablet,delayed release (DR/EC) 40 mg PO BID 30 Days Qty: 60 1RF ferrous sulfate [FeroSul] 325 mg (65 mg iron) tablet 325 mg PO BID Referrals / Follow Up: Tammy Jordan DO [Primary Care Provider] - Within 2 Weeks Shyam Moreno DO [Med Staff - Active Staff] - Within 2 Weeks (hemorrhoid bleed)
[2022-07-30 08:23] VITALS: BP 139/88; PULSE 76; RESP 16; TEMP 36.6; O2SAT 100
[2022-07-30] MEDS: oxyCODONE 5 MG Tablet PO (08:25)
[2022-07-30] MEDS: Ascorbic Acid 500 MG Tablet PO ×3 (08:25→17:40)
[2022-07-30] MEDS: Docusate Sodium 100 MG Capsule PO (08:26)
[2022-07-30 09:03] LABS: Absolute Lymphocyte Count 1.04 X10^3/uL (0.83-4.51); Absolute Neutrophil Count 7.9 X10^3/uL (2.0-7.7); Basophil# 0.02 X10^3/uL; Basophil% 0.2 % (0-1); Eosinophil# 0.09 X10^3/uL; Eosinophils% 0.9 % (0-5); Hematocrit 27.5 % (40-54); Hemoglobin 8.6 g/dL (13.0-16.5); Lymphocyte # 1.04 X10^3/ul (0.83-4.51); Lymphocyte % 10.8 % (19-41); Mean Corp Hgb Conc 31.3 g/dL (32-36); Mean Corpuscular Hgb 24.6 pg (27.0-32.0); Mean Corpuscular Volume 78.8 fL (80-94); Monocyte# 0.48 X10^3/uL; NRBC Flagged by Analyzer 0 % (0-5); Neutrophil # 7.87 X10^3/uL (2.7-7.7); Neutrophil % 82.1 % (47-70); Platelet Count 316 K/mm3 (150-450); RBC Distribution Width CV 18.6 % (11.6-14.6); RBC Distribution Width SD 50.8 fl (35.1-43.9); Red Blood Count 3.49 M/mm3 (4.6-6.2); White Blood Count 9.6 K/mm3 (4.4-11.0)
[2022-07-30 09:15] LABS: Anion Gap 8 (5-15); BUN 11 mg/dL (7-18); BUN/Creat Ratio 9.5 RATIO (10-20); Calcium,Total 8.6 mg/dL (8.5-10.1); Chloride 107 mmol/L (98-107); Creatinine, Serum 1.16 mg/dL (0.70-1.30); EST Glomerular Filtration Rate 73 mL/min (>60); Est Glom Filt Rate - Afr Amer 88 mL/min (>60); Estimated Creatinine Clearance 84.78 ml/min; Glucose 163 mg/dL (74-106); Potassium 3.7 mmol/L (3.5-5.1); Sodium Level 139 mmol/L (136-145)
--- NOTE | 2022-07-30 09:15 | DS.PCM_ITS ---
Providers Date of Admission: 07/28/22 Date of Discharge: 07/30/22 Primary Care Physician: Dr. Tammy Jordan DO Reason For Visit: GI BLEED Diagnosis Discharge Diagnosis (1) Upper GI bleed: Status: Acute Code(s): K92.2 - Gastrointestinal hemorrhage, unspecified (2) Iron deficiency anemia secondary to blood loss (chronic): Status: Chronic Code(s): D50.0 - Iron deficiency anemia secondary to blood loss (chronic) Plan This is a 42-year-old gentleman who is getting readmitted for similar GI bleed after discharge 3 days ago. 1. Acute GI bleed probably lower GI bleed with recent EGD finding of oozing gastric ulcer with visible vessel and nonbleeding gastric ulcer: Patient started on pantoprazole 80 mg IV bolus and then 40 mg IV every 12 hourly. Monitor H&H every 6 hourly. GI is consulted.IV fluid Ringer lactate. Type and crossmatch. During previous admission, he is hemoglobin was 9.8. Patient had EGD and colonoscopy on 07/25/2022. Colonoscopy with diverticulosis and nonbleeding internal hemorrhoids.? EGD showed normal esophagus with nonbleeding gastric ulcers with no stigmata of bleeding. 1 oozing gastric ulcer with visible vessel which was injected and treated with heater probe. It seems patient has lower GI bleed noted can be upper with rapid transition. 07/29:Serial H&H shows drop in hemoglobin from 8.5-7.9. IV iron ordered. Patient seen by GI and plan for EGD and sigmoidoscopy possible hemorrhoidal clipping. 07/30: Hemoglobin 8.6 better than before. Patient had banding of internal and ext ernal hemorrhoids. Patient is on ferrous sulfate decreased to once daily as patient had IV iron infusion 2 times and once daily iron iron absorption/ bioavailability better than twice daily. Right upper quadrant shows diffuse fatty infiltration of liver. No acute findings otherwise 2. Nonbleeding internal hemorrhoids and diverticulosis on recent colonoscopy: Continue hydrocortisone suppository. 07/30: Patient is discharged on psyllium husk twice daily for 2 months. Advised straining pulling or pushing. 3. Chronic severe alcohol use disorder fatty liver: I do not think patient has risk for alcohol withdrawal as he just drinks 2 beers in last 1 month. Liver chemistry normal range. Right upper quadrant sonogram ordered. 4. Chronic iron deficiency anemia due to chronic blood loss: Hemoglobin is 8.5 and platelet count is 315,000. Ferrous sulfate on ascorbic acid. IV iron ordered. 5. VT prophylaxis moderate risk. Pharmacological prophylaxis contraindicated due to rectal bleeding. CODE STATUS full code Discharge medication reconciliation done. Discharge follow-up instructions completed. Discharge process discussed with the patient and all questions were answered to patient's satisfaction. Total time spent, exact 35 minutes on discharge meds reconciliation, exa mination, coordination of care with nurses and ancillary staff, review of imaging and blood test and discussion with the patient on follow-up instructions. Medications at Discharge Home Medications ascorbic acid (vitamin C) 500 mg tablet 500 mg PO TIDCM #90 tabs 07/25/22 hydrocortisone acetate 25 mg rectal suppository 25 mg DC BID 2 weeks #12 ea 07/25/22 pantoprazole 40 mg tablet,delayed release 40 mg PO BID 30 days #60 tabs 07/26/22 ferrous sulfate 325 mg (65 mg iron) tablet (FeroSul) 325 mg PO DAILY #30 tabs 07/30/22 psyllium husk (with sugar) 3.4 gram/7 gram oral powder (Metamucil (with sugar)) 2 tsp PO BID #822 grams 07/30/22 Physical Exam Narrative Serial H&H shows drop in hemoglobin from 8.5-7.9. His baseline is 13 g. Patient had 4 more bright red rectal bleed after I saw him yesterday morning. He feels dizzy on standing up. Physical exam General: Alert, Oriented x3, Cooperative. HEENT: Atraumatic, PERRLA, EOMI, Normocephalic. Conjunctiva pale. Oral: Oral mucosa dry. No Gingival or Mucosal Lesions/ Ulcerations Neck: Supple, No JVD, Negative Carotid Bruits Lungs: Air entry diminished in bilateral lung bases. No crepitation/rhonchi Cardiovascular: Regular rate, Regular Rhythm, Normal S1, Normal S2, No murmurs Abdomen: Bowel Sounds Present, Soft, Non Tender, Non-Distended : No renal angle tenderness. No suprapubic tenderness. Extremities: No edema, Capillary Refill Less than 3 Seconds Skin: No rashes, No breakdown. Musculoskeletal: No Tenderness to Palpation of Joints or Extremities. ROM full. Neurological: Cranial nerves II-XII grossly intact, DTR 2+/4, Neuro grossly intact Psych/Mental Status: Flat affect. Weight / BMI Weight Weight: 213 lb 13.574 oz Body Mass Index (BMI) 30.7 ABG / Lab / Microbiology Data Result Diagrams: 07/30/22 08:35 07/30/22 08:35 Laboratory: Laboratory Results - last 24 hr 07/30/22 08:35: WBC 9.6, RBC 3.49 L, Hgb 8.6 L, Hct 27.5 L, MCV 78.8 L, MCH 24.6 L, MCHC 31.3 L, RDW Std Deviation 50.8 H, RDW Coeff of Breanne 18.6 H, Plt Count 316, MPV 10.0, Immature Gran % (Auto) 1.000 H, Neut % (Auto) 82.1 H, Lymph % (Auto) 10.8 L, Coryell % (Auto) 5.0, Eos % (Auto) 0.9, Baso % (Auto) 0.2, Absolute Neuts (auto) 7.9 H, Absolute Lymphs (auto) 1.04, Nucleated RBC % 0 07/30/22 08:35: Sodium 139, Potassium 3.7, Chloride 107, Carbon Dioxide 24.0, Anion Gap 8, BUN 11, Creatinine 1.16, Estim Creat Clear Calc 84.78, Est GFR (MDRD) Af Amer 88, Est GFR (MDRD) Non-Af 73, BUN/Creatinine Ratio 9.5 L, Glucose 163 H, Calcium 8.6 D/C Instructions Discharge Diet: No restrictions Weight Bearing Status: Weight bearing as tolerated Call your doctor if you observe: Fever of 101 or Higher, Coldness, Increased Pain, Numbness or Tingling, Change in Color, Inability to urinate, Inability to have a bowel movement, Shortness of breath, Dizziness, Fainting spells, Swelling in the ankles, Chest pain, Prolonged hiccupping, Increased palpitations (irregular heartbeat) and Calf discomfort Suture Line Care: Avoid Pulling/Pushing When: IN 2 WEEKS Meaningful Use Info Meaningful Use Diagnoses (Choose all that apply): None applicable Discharge Plan Admission Admit Date/Time: 07/28/22 08:57 Primary Reason for Your Visit: Acute lower GI Bleed Attending Provider: Patrick Chaudhary Primary Care Provider: Julian,Tammy Discharge Orders/Prescriptions Prescriptions: New Metamucil (with sugar) 3.4 gram/7 gram powder 2 tsp PO BID Qty: 822 0RF Continued ascorbic acid (vitamin C) 500 mg Tablet 500 mg PO TIDCM Qty: 90 0RF hydrocortisone acetate 25 mg suppository 25 mg DC BID 14 Days Qty: 12 0RF pantoprazole 40 mg tablet,delayed release (DR/EC) 40 mg PO BID 30 Days Qty: 60 1RF Changed ferrous sulfate [FeroSul] 325 mg (65 mg iron) tablet 325 mg PO DAILY Qty: 30 0RF Referrals / Follow Up: Tammy Jordan DO [Primary Care Provider] - Within 2 Weeks FriendShyam DO [Med Staff - Active Staff] - Within 2 Weeks (hemorrhoid bleed) Charges/Coding Visit Charges Inpatient E&M: 58692 Disch Hosp >30min
--- NOTE | 2022-07-30 10:30 | CASEMGMT ---
RN RAÚL Face to Face with patient for initial transition planning/care coordination assessment. RN CM introduced self and role at [facility]. Patient lying in bed, alert and oriented. Patient willing to participate in assessment and is able to answer all questions appropriately. Care providers, pharmacy, and demographics verified. Patient wishes to discharge home, denies need for home health at this time. Patient states he has no further needs or concerns at this time. CM to follow for discharge planning needs that may arise. PCP: Julian Specialists: Friend, СЕРГЕЙ Preferred Pharmacy: [facility] Insurance: [employer] Prescription Benefit: yes Living Will/HPOA: none LNOK:mother Living Arrangements: Patient lives with mother in a bilevel home with 9-10 steps with railing. Patient states he is independent and able to ambulate stairs. Transportation: self, mother DME/HHC: Patient has crutches at home. No previous HHC. Disposition Plan: Patient to discharge home with family support and follow-up plans in place. Ewa STEVENS, RN, CM
[2022-07-30] MEDS: Pantoprazole Sodium 40 MG Tablet PO (11:33)
[2022-07-30] MEDS: Ferrous Sulfate 325 MG Tablet PO (11:33)
--- NOTE | 2022-07-30 13:04 | PCM.PROGNOTE ---
Subjective Subjective Patient underwent repeat flexible sigmoidoscopy yesterday large internal Hemorroids. Patient underwent banding. He did have a little bleeding this morning. Objective Data Objective Data Vital Signs: Vital Signs Temp Pulse Resp BP Pulse Ox O2 Del Method 97.8 F 76 16 139/88 H 100 Room Air 07/30/22 08:23 07/30/22 08:23 07/30/22 08:23 07/30/22 08:23 07/30/22 08:23 07/30/22 08:23 Oxygen Delivery Method Room Air Weight: 213 lb 13.574 oz Body Mass Index (BMI) 30.7 Intake & Output: Intake and Output for Last 24 Hours 07/28/22 07/29/22 07/30/22 23:59 23:59 23:59 Intake Total 2735.08 / 2735.08 1890 / 1890 336.75 / 336.75 Balance 2735.08 / 2735.08 1890 / 1890 336.75 / 336.75 Lab / Micro Data Result Diagrams: 07/30/22 08:35 07/30/22 08:35 Labs: Laboratory Results - last 24 hr 07/30/22 08:35: WBC 9.6, RBC 3.49 L, Hgb 8.6 L, Hct 27.5 L, MCV 78.8 L, MCH 24.6 L, MCHC 31.3 L, RDW Std Deviation 50.8 H, RDW Coeff of Breanne 18.6 H, Plt Count 316, MPV 10.0, Immature Gran % (Auto) 1.000 H, Neut % (Auto) 82.1 H, Lymph % (Auto) 10.8 L, [place] % (Auto) 5.0, Eos % (Auto) 0.9, Baso % (Auto) 0.2, Absolute Neuts (auto) 7.9 H, Absolute Lymphs (auto) 1.04, Nucleated RBC % 0 07/30/22 08:35: Sodium 139, Potassium 3.7, Chloride 107, Carbon Dioxide 24.0, Anion Gap 8, BUN 11, Creatinine 1.16, Estim Creat Clear Calc 84.78, Est GFR (MDRD) Af Amer 88, Est GFR (MDRD) Non-Af 73, BUN/Creatinine Ratio 9.5 L, Glucose 163 H, Calcium 8.6 Assessment & Plan Assessment/Plan (1) Upper GI bleed: (2) Iron deficiency anemia secondary to blood loss (chronic): PLAN: Plan This is a 42-year-old gentleman who is getting readmitted for similar GI bleed after discharge 3 days ago. Acute GI bleed probably lower GI bleed with recent EGD finding of oozing gastric ulcer with visible vessel and nonbleeding gastric ulcer: Patient started on pantoprazole 80 mg IV bolus and then 40 mg IV every 12 hourly. Monitor H&H every 6 hourly. GI is consulted.IV fluid Ringer lactate. Type and crossmatch. During previous admission, he is hemoglobin was 9.8. Patient had EGD and colonoscopy on 07/25/2022. Colonoscopy with diverticulosis and nonbleeding internal hemorrhoids.? EGD showed normal esophagus with nonbleeding gastric ulcers with no stigmata of bleeding. 1 oozing gastric ulcer with visible vessel which was injected and treated with heater probe. It seems patient has lower GI bleed noted can be upper with rapid transition. 07/29:Serial H&H shows drop in hemoglobin from 8.5-7.9. IV iron ordered. Patient seen by GI and plan for EGD and sigmoidoscopy possible hemorrhoidal clipping. Charges/Coding Visit Charges Inpatient E&M: 31813 Subs Hosp L2
[2022-07-30 15:07] VITALS: BP 148/82; PULSE 81; RESP 16; TEMP 36.8; O2SAT 98
== END 2022-07-30 18:20 | disposition home or self-care (01) | DRG 349 ==
LOC: ED 08:59 → PCU 14:40
PROVIDERS: Internal Medicine Gastroenterology; Admitting Provider Internal Medicine; Emergency Provider Emergency Medicine; PCP Internal Medicine; Visit Provider Internal Medicine
PROC: 0DJ08ZZ Inspection of Upper Intestinal Tract, Via Natural or Artificial Opening Endoscopic (ICD-10-PCS; CPT 43235; principal; 2022-07-29 11:25)
PROC: 0DJD8ZZ Inspection of Lower Intestinal Tract, Via Natural or Artificial Opening Endoscopic (ICD-10-PCS; CPT 45330; 2022-07-29 11:25)
DX: K64.2 Third degree hemorrhoids (principal); D50.0 Iron deficiency anemia secondary to blood loss (chronic); F10.20 Alcohol dependence, uncomplicated; K57.30 Diverticulosis of large intestine without perforation or abscess without bleeding; K64.4 Residual hemorrhoidal skin tags; R03.0 Elevated blood-pressure reading, without diagnosis of hypertension; Z79.899 Other long term (current) drug therapy; Z87.891 Personal history of nicotine dependence
CPT/HCPCS: 36415; 76705; 80048; 83735; 85014; 85018; 85025; 85610; 85730; 86850; 86900; 86901; 88305; 88342; 93005; 94668; 99284; 99406; J7030; J7040; J7050; J7120; A4216; J2405; J2916; J3490

== ENCOUNTER → 2022-09-11 | Outpatient (CLI) | payer OTHER, SELFPAY ==
[2022-09-11 09:56] LABS: Absolute Neutrophil Count 6.6 X10^3/uL (2.0-7.7); Basophil# 0.04 X10^3/uL; Basophil% 0.4 % (0-1); Eosinophil# 0.06 X10^3/uL; Eosinophils% 0.6 % (0-5); Hemoglobin 14.9 g/dL (13.0-16.5); Mean Corp Hgb Conc 32.4 g/dL (32-36); Mean Corpuscular Hgb 27.5 pg (27.0-32.0); Mean Corpuscular Volume 84.9 fL (80-94); Mean Platelet Vol. 9.5 fl (6.2-12.0); Monocyte# 0.69 X10^3/uL; Monocyte% 7.2 % (0-10); NRBC Flagged by Analyzer 0 % (0-5); Neutrophil # 6.59 X10^3/uL (2.7-7.7); Neutrophil % 69.3 % (47-70); Platelet Count 334 K/mm3 (150-450); RBC Distribution Width SD 50.4 fl (35.1-43.9); Red Blood Count 5.42 M/mm3 (4.6-6.2); White Blood Count 9.5 K/mm3 (4.4-11.0)
[2022-09-11 10:38] LABS: Ferritin 71 ng/mL (26-388); Iron 63 ug/dL (65-175); Iron Binding Capacity,Total 328 ug/dL (250-450); PERCENT IRON SATURATION 19.2 % (15.0-55.0)
== END | disposition home or self-care (01) ==
LOC: LAB 09:19
PROVIDERS: PCP Internal Medicine; Referring Provider Nurse Practitioner Adult Health; Visit Provider Nurse Practitioner Adult Health
DX: D50.0 Iron deficiency anemia secondary to blood loss (chronic) (principal)
CPT/HCPCS: 36415; 82728; 83540; 83550; 85025